=== PATIENT | male | born 1985 | race Caucasian/White ===

== ENCOUNTER 2017-04-13 15:12 | Inpatient (IN) | payer MEDICAID, OTHER ==
[~2017-04-13] VITALS: Ht 175.3 cm; Wt 79.0 kg
[~2017-04-13 15:12] MED LIST: HYDR-3535 PO
[2017-04-13] MEDS ORDERED: ONDANSETRON HCL 4 MG/2 ML VIAL ONE (15:13)
[2017-04-13] MEDS ORDERED: MORPHINE SULFATE 8 MG/ML INJ ONE (15:14)
[2017-04-13] MEDS ORDERED: MORPHINE SULFATE 4 MG/ML INJ IV PUSH ONE (15:30)
[2017-04-13] MEDS ORDERED: ONDANSETRON HCL 4 MG/2 ML VIAL IV PUSH ONE (15:30)
[2017-04-13] MEDS ORDERED: HYDROmorphone HCL PF 1 MG/ML VIAL IV PUSH ONE (16:30)
--- NOTE | 2017-04-13 16:38 | RADRPT ---
EXAM DATE/TIME: 04/13/2017 15:35 [facility] COMPARISON: No previous studies available for comparison. INDICATIONS : Right ankle pain due to fall off roof. MEDICAL HISTORY : None. SURGICAL HISTORY : None. ENCOUNTER: Initial ACUITY: 1 day PAIN SCORE: 10/10 LOCATION: Right Ankle. FINDINGS: AP, lateral and oblique views of the right ankle were obtained and demonstrate a moderately comminute d fracture deformity of the calcaneus with multiple well-defined fracture lines and mild to moderate deformity. There is surrounding soft tissue edema. The talus and midfoot are intact. The distal tibio fibular intact as well. The mortise is congruent. CONCLUSION: Moderately comminuted fracture deformity of the calcaneus. Jonas Junior MD on April 13, 2017 at 16:35 Board Certified Radiologist. This report was verified electronically.
--- NOTE | 2017-04-13 16:39 | RADRPT ---
EXAM DATE/TIME: 04/13/2017 15:49 [facility] COMPARISON: No previous studies available for comparison. INDICATIONS : Low back pain due fall off roof. MEDICAL HISTORY : None. SURGICAL HISTORY : None. ENCOUNTER: Initial ACUITY: 1 day PAIN SCORE: 10/10 LOCATION: Lumbar spine. FINDINGS: There are five non-rib bearing vertebral bodies. The vertebral bodies are in normal alignment withou t evidence of subluxation or scoliosis. The disc spaces are maintained. The posterior elements are intact without evidence of spondylolysis. The pedicles are intact. Bony mineralization is normal. No fracture is identified. There is mild scoliosis. CONCLUSION: Negative trauma study. Jonas Junior MD on April 13, 2017 at 16:37 Board Certified Radiologist. This report was verified electronically.
--- NOTE | 2017-04-13 16:39 | RADRPT ---
EXAM DATE/TIME: 04/13/2017 15:38 [facility] COMPARISON: ANKLE RIGHT COMPLETE ([id number]), April 13, 2017, 15:35. INDICATIONS : Right lower leg pain due to fall off roof. MEDICAL HISTORY : None. SURGICAL HISTORY : None. ENCOUNTER: Initial ACUITY: 1 day PAIN SCORE: 10/10 LOCATION: Right Tib fib. FINDINGS: Two view examination of the right tibia demonstrates no evidence of fracture or dislocation. Bony mi neralization is normal. The soft tissue structures are intact. The known calcaneal fracture is again visualized. CONCLUSION: Negative trauma study. The known calcaneal fracture is again visualized. Jonas Junior MD on April 13, 2017 at 16:36 Board Certified Radiologist. This report was verified electronically.
--- NOTE | 2017-04-13 16:41 | RADRPT ---
EXAM DATE/TIME: 04/13/2017 15:45 [facility] COMPARISON: No previous studies available for comparison. INDICATIONS : Left tib fib due to fall off roof. MEDICAL HISTORY : None. SURGICAL HISTORY : None. ENCOUNTER: Initial ACUITY: 1 day PAIN SCORE: 10/10 LOCATION: Left Tib fib. FINDINGS: Two view examination of the left tibia demonstrates no evidence of fracture or dislocation. Bony min eralization is normal. The soft tissue structures are intact. CONCLUSION: Negative trauma study. Jonas Junior MD on April 13, 2017 at 16:39 Board Certified Radiologist. This report was verified electronically.
[2017-04-13 16:42] VITALS: BP 145/98; PULSE 90; RESP 18; TEMP 98.4; O2SAT 98
--- NOTE | 2017-04-13 16:42 | RADRPT ---
EXAM DATE/TIME: 04/13/2017 15:42 [facility] COMPARISON: No previous studies available for comparison. INDICATIONS : Left ankle pain due to fall off roof. MEDICAL HISTORY : None. SURGICAL HISTORY : None. ENCOUNTER: Initial ACUITY: 1 day PAIN SCORE: 10/10 LOCATION: Left Ankle. FINDINGS: AP, lateral and oblique views of the left ankle were obtained and demonstrate a mildly comminuted fra cture deformity of the calcaneus with several well-defined fracture lines. These extend to the subtal ar joint. There is mild soft tissue swelling. The talus is intact. The ankle mortise is intact as wel l. CONCLUSION: Mildly comminuted fracture deformity of the calcaneus. Jonas Junior MD on April 13, 2017 at 16:39 Board Certified Radiologist. This report was verified electronically.
--- NOTE | 2017-04-13 16:43 | RADRPT ---
EXAM DATE/TIME: 04/13/2017 16:00 [facility] COMPARISON: ANKLE RIGHT COMPLETE ([id number]), April 13, 2017, 15:35. INDICATIONS : Right foot pain and swelling due to fall off roof. MEDICAL HISTORY : None. SURGICAL HISTORY : None. ENCOUNTER: Initial ACUITY: 1 day PAIN SCORE: 10/10 LOCATION: Right Foot. FINDINGS: AP, lateral and oblique views of the right foot were obtained and again demonstrate a moderately comm inuted fracture deformity of the calcaneus with multiple ill-defined fracture lines. These extend int o the subtalar joint. There is deformity of the calcaneus with surrounding soft tissue swelling. The metatarsals and phalanges are intact. The midfoot is intact as well. CONCLUSION: Moderately comminuted fracture deformity of the calcaneus again noted. Jonas Junior MD on April 13, 2017 at 16:40 Board Certified Radiologist. This report was verified electronically.
--- NOTE | 2017-04-13 16:44 | RADRPT ---
EXAM DATE/TIME: 04/13/2017 16:02 [facility] COMPARISON: No previous studies available for comparison. INDICATIONS : Left foot pain and swelling due to fall off roof. MEDICAL HISTORY : None. SURGICAL HISTORY : None. ENCOUNTER: Initial ACUITY: 1 day PAIN SCORE: 10/10 LOCATION: Left Foot. FINDINGS: AP, lateral and oblique views of the left foot were obtained and again demonstrate the mildly comminu robert fracture deformity of the calcaneus with several ill-defined fracture lines. The mid foot and jaciel us are intact. The metatarsals and phalanges are intact as well. There is mild soft tissue swelling o jesi the calcaneus. CONCLUSION: Mildly comminuted fracture deformity of the calcaneus again noted. Jonas Junior MD on April 13, 2017 at 16:41 Board Certified Radiologist. This report was verified electronically.
[2017-04-13 17:16] LABS: ALCOHOL LESS THAN 3 MG/DL (0-5)
--- NOTE | 2017-04-13 17:49 | PD ---
HPI Chief Complaint: Fall Time Seen by Provider: 15:16 Travel History International Travel<30 days: No Contact w/Intl Traveler<30days: No Traveled to known affect area: No History of Present Illness HPI Patient is a 32-year-old male who comes in after he fell off of the roof. He was in a heart is on a rope, but it did not catch and he 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 He denies any other injuries. He says he did not fall down. He is complaining of pain to both feet. He did not hit his head or lose consciousness. He denies any chest pain or abdominal pain. He denies any back pain. He denies numbness or tingling of his extremities. PFSH Past Medical History Cerebrovascular Accident: No Myocardial Infarction: No ?: Not Social History Alcohol Use: Yes (OCCASIONALLY) Tobacco Use: No Substance Use: No Allergies-Medications (Allergen,Severity, Reaction): Coded Allergies: No Known Allergies (Unverified , 07/07/14) Reported Meds & Prescriptions Reported Meds & Active Scripts Active Review of Systems Except as stated in HPI: all other systems reviewed are Neg General / Constitutional: No: Fever, Chills Eyes: No: Blurred Vision HENT: No: Headaches, Lightheadedness Cardiovascular: No: Chest Pain or Discomfort Respiratory: No: Shortness of Breath Gastrointestinal: No: Nausea, Vomiting Musculoskeletal: Positive: Pain Skin: No Change in Pigmentation, No Lesions Neurologic: No: Paresthesia, Sensory Disturbance Physical Exam Narrative GENERAL: Awake and alert, in no acute distress. SKIN: Focused skin assessment warm/dry. No open wounds. HEAD: Atraumatic. Normocephalic. EYES: Pupils equal and round. No scleral icterus. ENT: Mucous membranes pink and moist. NECK: Trachea midline. No JVD. No cervical spine tenderness. CARDIOVASCULAR: Regular rate and rhythm. No murmur appreciated. No chest wall tenderness. RESPIRATORY: No accessory muscle use. Clear to auscultation. Breath sounds equal bilaterally. GASTROINTESTINAL: Abdomen soft, non-tender, nondistended. MUSCULOSKELETAL: No obvious deformities. No clubbing. No cyanosis. No edema. No tenderness to the thoracic or lumbar spine. Deformities of both feet. Pedal pulses intact. No tenderness to the lower legs, knees or upper legs. NEUROLOGICAL: Awake and alert. No obvious cranial nerve deficits. Motor grossly within normal limits. Normal speech. PSYCHIATRIC: Appropriate mood and affect; insight and judgment normal. Data Data Last Documented VS Vital Signs Date Time Temp Pulse Resp B/P (MAP) Pulse Ox O2 Delivery O2 Flow Rate FiO2 04/13/17 16:44 80 18 98 Room Air 04/13/17 16:42 98.4 145/98 (114) Orders Orders Ondansetron Inj (Zofran Inj) (04/13/17 15:13) Morphine Inj (Morphine Inj) (04/13/17 15:14) Foot, Complete ([id number]) (04/13/17 ) Ankle, Complete ([id number]) (04/13/17 ) Tibia/Fibula (Ap/Lat) (04/13/17 ) Foot, Complete (Jqi7npt) (04/13/17 ) Ankle, Complete (Mhr6ned) (04/13/17 ) Tibia/Fibula (Ap/Lat) (04/13/17 ) Spine, Lumbar Comp W/Obliq (04/13/17 ) Morphine Inj (Morphine Inj) (04/13/17 15:30) Ondansetron Inj (Zofran Inj) (04/13/17 15:30) Drug Screen, Random Urine (04/13/17 16:16) Alcohol (Ethanol) (04/13/17 16:16) Hydromorphone Pf Inj (Dilaudid Pf Inj) (04/13/17 16:30) Ct Foot W/O Contrast (04/13/17 ) Ct Foot W/O Contrast (04/13/17 ) Splint Or Brace Apply/Monitor (04/13/17 17:28) Complete Blood Count With Diff (04/13/17 17:38) Comprehensive Metabolic Panel (04/13/17 17:38) Act Partial Throm Time (Ptt) (04/13/17 17:38) Prothrombin Time / Inr (Pt) (04/13/17 17:38) Labs Laboratory Tests Test 04/13/17 16:24 Ethyl Alcohol Level LESS THAN 3 MG/DL MDM Medical Decision Making Medical Screen Exam Complete: Yes Emergency Medical Condition: Yes Differential Diagnosis Calcaneal fracture versus ankle fracture versus tib-fib fracture Narrative Course Patient is a 32-year-old male comes in after he fell off the roof. Exam shows deformities of both feet. Patient given pain medicine. Taken for x-rays of both feet, ankles, tib-fib and the lumbar spine. X-rays show fracture of by lateral calcaneus bones. I spoke with podiatry who comes patient and take him for surgery either tonight or tomorrow morning. She would like CAT scans performed, these were ordered. Patient will be admitted for further management. Diagnosis Primary Impression: Calcaneal fracture Qualified Codes: S92.009A - Unspecified fracture of unspecified calcaneus, initial encounter for closed fracture Admitting Information Admitting Physician Requests: Admit Anette Lacey MD Apr 13, 2017 17:49
[2017-04-13 18:06] LABS: AUTOMATED NEUTROPHIL # 12.8 TH/MM3 (1.8-7.7); BASOPHIL % 0.2 % (0.0-2.0); EOSINOPHIL # 0.1 TH/MM3 (0-0.4); EOSINOPHIL % 0.3 % (0.0-4.0); HEMATOCRIT 44.5 % (39.0-51.0); HEMO FLAGS DIFF FINAL; LYMPH % 18.1 % (9.0-44.0); MEAN CORPUSCULAR HEMOGLOBIN 32.5 PG (27.0-34.0); MEAN CORPUSCULAR HGB CONC 34.9 % (32.0-36.0); MONO % 4.8 % (0.0-8.0); NEUT % 76.6 % (16.0-70.0); PLATELET COUNT 202 TH/MM3 (150-450); RED BLOOD COUNT 4.79 MIL/MM3 (4.50-5.90); RED CELL DISTRIBUTION WIDTH 13.5 % (11.6-17.2); WHITE BLOOD COUNT 16.8 TH/MM3 (4.0-11.0)
[2017-04-13 18:13] VITALS: BP 122/83; PULSE 98; RESP 18; O2SAT 99
[2017-04-13 18:13] LABS: APTT (PATIENT) 25.7 SEC (24.3-30.1); PROTHROMBIN TIME - PATIENT 10.6 SEC (9.8-11.6)
[2017-04-13] MEDS ORDERED: ONDANSETRON HCL 4 MG/2 ML VIAL IVP PRN (18:15)
[2017-04-13] MEDS ORDERED: HYDROmorphone HCL PF 0.5 MG/0.5 ML SYRINGE IV PUSH ONE (18:15)
[2017-04-13] MEDS ORDERED: oxyCODONE/ACETAMINOPHEN 5 MG/325 MG TAB PO PRN (18:15)
[2017-04-13] MEDS ORDERED: NALOXONE HCL 0.4 MG/ML AMP IV PUSH PRN (18:15)
[2017-04-13 18:30] LABS: AST (GOT) 27 U/L (15-37); BLOOD UREA NITROGEN 14 MG/DL (7-18); CHLORIDE 103 MEQ/L (98-107); GLOMERULAR FILTRATION RATE 79 ML/MIN (>89); SODIUM (NA) 138 MEQ/L (136-145)
--- NOTE | 2017-04-13 18:30 | HHI.HP ---
[facility] Unknown Admission Diagnosis calcaneal fractures Diagnoses: (1) Calcaneal fracture Chief Complaint: Fell off roof Travel History International Travel<30 Days: No Contact w/Intl Traveler <30 Da: No Traveled to Known Affected Are: No History of Present Illness Written by Bello Munroe, acting as scribe for Dr. Scott on 04/13/17 at 18:10. 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 He does not report a significant past medical history, denies any other injuries or trauma. When seen his is at bedside and he appears comfortable in no acute distress. He is complaining of bilateral foot pain radiating it 10, states pain medication that he received did help but for only short period of time. Does not report any fever, chills, numbness, or tingling. Review of Systems Musculoskeletal: COMPLAINS OF: Joint pain Except as stated in HPI: all other systems reviewed are Neg Past Family Social History Past Medical History Denies past medical history Past Surgical History Reattachment of left hand portion of fifth digit Reported Medications Reported Meds & Active Scripts Active Allergies: Coded Allergies: No Known Allergies (Unverified Allergy, Unknown, 04/13/17) Family History Father: diabetes Social History Tobacco: 1-2 packs per day Alcohol: Denies use Illicit drug use: Denies use Physical Exam Vital Signs Vital Signs Date Time Temp Pulse Resp B/P (MAP) Pulse Ox O2 Delivery O2 Flow Rate FiO2 04/13/17 16:44 80 18 98 Room Air 04/13/17 16:42 98.4 90 18 145/98 (114) 98 Room Air Physical Exam GENERAL: This is a well-nourished, well-developed patient, in no apparent distress. SKIN: No rashes, ecchymoses or lesions. Cool and dry. HEAD: Atraumatic. Normocephalic. No temporal or scalp tenderness. EYES: Pupils equal round and reactive. No injection or drainage. ENT: Nose without bleeding, purulent drainage or septal hematoma. Airway patent. NECK: Trachea midline. CARDIOVASCULAR: Regular rate and rhythm without murmurs, gallops, or rubs. RESPIRATORY: Clear to auscultation. Breath sounds equal bilaterally. No wheezes , rales, or rhonchi. GASTROINTESTINAL: Abdomen soft, non-tender, nondistended. No hepato-splenomegaly , or palpable masses. No guarding. MUSCULOSKELETAL: Bilateral feet and legs in soft splints, toes visible capillary refill <3 seconds. ROM limited due to splints, moves upper extremities without difficulty. NEUROLOGICAL: Awake and alert. Motor and sensory grossly within normal limits. Normal speech. Laboratory Laboratory Tests Test 04/13/17 16:24 04/13/17 17:46 Ethyl Alcohol Level LESS THAN 3 White Blood Count 16.8 Red Blood Count 4.79 Hemoglobin 15.5 Hematocrit 44.5 Mean Corpuscular Volume 93.0 Mean Corpuscular Hemoglobin 32.5 Mean Corpuscular Hemoglobin Concent 34.9 Red Cell Distribution Width 13.5 Platelet Count 202 Mean Platelet Volume 9.7 Neutrophils (%) (Auto) 76.6 Lymphocytes (%) (Auto) 18.1 Monocytes (%) (Auto) 4.8 Eosinophils (%) (Auto) 0.3 Basophils (%) (Auto) 0.2 Neutrophils # (Auto) 12.8 Lymphocytes # (Auto) 3.0 Monocytes # (Auto) 0.8 Eosinophils # (Auto) 0.1 Basophils # (Auto) 0.0 CBC Comment DIFF FINAL Differential Comment Result Diagram: 04/13/17 1746 Imaging Last Impressions Tibia/Fibula X-Ray 04/13/17 0000 Signed Impressions: Service Date/Time: Thursday, April 13, 2017 15:38 - CONCLUSION: Negative trauma study. The known calcaneal fracture is again visualized. Jonas Junior MD Lumbar Spine X-Ray 04/13/17 0000 Signed Impressions: Service Date/Time: Thursday, April 13, 2017 15:49 - CONCLUSION: Negative trauma study. Jonas Junior MD Foot X-Ray 04/13/17 0000 Signed Impressions: Service Date/Time: Thursday, April 13, 2017 16:00 - CONCLUSION: Moderately comminuted fracture deformity of the calcaneus again noted. Jonas Junior MD Ankle X-Ray 04/13/17 0000 Signed Impressions: Service Date/Time: Thursday, April 13, 2017 15:35 - CONCLUSION: Moderately comminuted fracture deformity of the calcaneus. MD Dede Gan VTE Risk Assessment Dede VTE Risk Assessment: No/Low Risk (score <= 1) VTE Pharm Contraindication: Calcaneus fracture with possible surgical intervention tonight or tomorrow eDde Risk Assessment Model Point Value = 1 Point Value = 2 Point Value = 3 Point Value = 5 Age 41-60 Minor surgery BMI > 25 kg/m2 Swollen legs Varicose veins or History of unexplained or recurrent spontaneous Oral contraceptives or hormone replacement Sepsis (< 1 month) Serious lung disease, including pneumonia (< 1 month) Abnormal pulmonary function Acute myocardial infarction Congestive heart failure (< 1 month) History of inflammatory bowel disease Medical patient at bed rest Age 61-74 Arthroscopic surgery Major open surgery (> 45 min) Laparoscopic surgery (> 45 min) Malignancy Confined to bed (> 72 hours) Immobilizing plaster cast Central venous access Age >= 75 History of VTE Family history of VTE Factor V Leiden Prothrombin [id number] Lupus anticoagulant Anticardiolipin antibodies Elevated serum homocysteine Heparin-induced thrombocytopenia Other congenital or acquired thrombophilia Stroke (< 1 month) Elective arthroplasty Hip, pelvis, or leg fracture Acute spinal cord injury (< 1 month) Prophylaxis Regimen Total Risk Factor Score Risk Level Prophylaxis Regimen 0-1 Low Early ambulation 2 Moderate Order ONE of the following: *Sequential Compression Device (SCD) *Heparin 5000 units SQ BID 3-4 Higher Order ONE of the following medications: *Heparin 5000 units SQ TID *Enoxaparin/Lovenox 40 mg SQ daily (WT < 150 kg, CrCl > 30 mL/min) *Enoxaparin/Lovenox 30 mg SQ daily (WT < 150 kg, CrCl > 10-29 mL/min) *Enoxaparin/Lovenox 30 mg SQ BID (WT < 150 kg, CrCl > 30 mL/min) AND/OR *Sequential Compression Device (SCD) 5 or more Highest Order ONE of the following medications: *Heparin 5000 units SQ TID (Preferred with Epidurals) *Enoxaparin/Lovenox 40 mg SQ daily (WT < 150 kg, CrCl > 30 mL/min) *Enoxaparin/Lovenox 30 mg SQ daily (WT < 150 kg, CrCl > 10-29 mL/min) *Enoxaparin/Lovenox 30 mg SQ BID (WT < 150 kg, CrCl > 30 mL/min) AND *Sequential Compression Device (SCD) Assessment and Plan Problem List: (1) Calcaneal fracture ICD Code: S92.009A - Unspecified fracture of unspecified calcaneus, initial encounter for closed fracture Status: Acute Assessment and Plan 32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 Bilateral calcaneus fractures - Secondary to sustained injury after he slipped off of her roof - X-ray of left ankle personally reviewed showing mildly comminuted fracture deformity of the calcaneus - X-ray of right ankle personally reviewed showing moderately comminuted fracture deformity of the calcaneus. - Bilateral foot x-rays once again demonstrating fractures as described above , lumbar spine x-ray negative for fracture, lateral tibial/fibular x-rays negative for fracture. - The orthopedic service is consulted - Pain management with P.O oxycodone and IV Dilaudid for breakthrough pain. Nicotine dependence - Nicotine patch offered, at this moment has refused. Patient to let me know if he changes his mind. VTE - Hold anticoagulation preparation for possible surgical intervention, SCDs contraindicated due to soft splints in place. Discussed with at bedside Code Status Full code Discussed Condition With This note was transcribed by [email or web address] [Bello Munroe]. I, Dr. Saman Scott personally performed the history, physical exam, and medical decision making; and confirmed the accuracy of the information in the transcribed note. Authenticated by Dr. Saman Scott on 04/13/17 at 18:55. Physician Certification 2 Midnight Certification Type: Admission for Inpatient Services Order for Inpatient Services The services are ordered in accordance with Medicare regulations or non- Medicare payer requirements, as applicable. In the case of services not specified as inpatient-only, they are appropriately provided as inpatient services in accordance with the 2-midnight benchmark. Estimated LOS (days): 3 days is the estimated time the patient will need to remain in the hospital, assuming treatment plan goals are met and no additional complications. Post-Hospital Plan: Home Problem Qualifiers (1) Calcaneal fracture: Qualified Codes: S92.009A - Unspecified fracture of unspecified calcaneus, initial encounter for closed fracture Bello Munroe Apr 13, 2017 18:30 Saman Scott MD Apr 13, 2017 18:55
[2017-04-13 18:38] LABS: ALT (GPT) 55 U/L (12-78); ANION GAP 10 MEQ/L (5-15); BICARBONATE 25.2 MEQ/L (21.0-32.0); TOTAL BILIRUBIN ADULT 0.9 MG/DL (0.2-1.0)
[2017-04-13 18:40] LABS: ALKALINE PHOSPHATASE 95 U/L (45-117)
--- NOTE | 2017-04-13 18:42 | RADRPT ---
EXAM DATE/TIME: 04/13/2017 17:44 [facility] COMPARISON: FOOT RIGHT COMPLETE ([id number]), April 13, 2017, 16:00. FOOT LEFT COMPLETE ([id number]), April 13, 2017, 16:02. INDICATIONS : Right foot pain from fall off ladder. RADIATION DOSE: 30.79 CTDIvol (mGy) MEDICAL HISTORY : None SURGICAL HISTORY : None. ENCOUNTER: Initial ACUITY: 1 day PAIN SCALE: 10/10 LOCATION: Right heel TECHNIQUE: Volumetric scanning of the foot was performed. Using automated exposure control and adjustment of th e mA and/or kV according to patient size, radiation dose was kept as low as reasonably achievable to obtain optimal diagnostic quality images. DICOM format image data is available electronically for re view and comparison. FINDINGS: BONES: There is a comminuted fracture of the calcaneus. The calcaneal fracture extends into the posterior an d mid portions of the subtalar joint. There is also extension into the medial aspect of the calcaneoc uboid joint. There is collapse of Boehler's angle. SOFT TISSUES: Muscles, tendons, and neurovascular structures are grossly unremarkable. No evidence of mass, organiz ed fluid collection, or foreign body. CONCLUSION: Comminuted calcaneal fracture. Luke Romero MD on April 13, 2017 at 18:38 Board Certified Radiologist. This report was verified electronically.
--- NOTE | 2017-04-13 18:44 | RADRPT ---
EXAM DATE/TIME: 04/13/2017 17:44 [facility] COMPARISON: No previous studies available for comparison. INDICATIONS : Left foot pain from fall off ladder. RADIATION DOSE: 30.79 CTDIvol (mGy) MEDICAL HISTORY : None SURGICAL HISTORY : None. ENCOUNTER: Initial ACUITY: 1 day PAIN SCALE: 10/10 LOCATION: proximal foot TECHNIQUE: Volumetric scanning of the foot was performed. Using automated exposure control and adjustment of th e mA and/or kV according to patient size, radiation dose was kept as low as reasonably achievable to obtain optimal diagnostic quality images. DICOM format image data is available electronically for re view and comparison. FINDINGS: BONES: There is a comminuted fracture of the calcaneus with extension into the mid and posterior aspects of the subtalar joint. There is extension into the medial aspect of the calcaneocuboid joint. There is l oss of Boehler's angle. SOFT TISSUES: Muscles, tendons, and neurovascular structures are grossly unremarkable. No evidence of mass, organiz ed fluid collection, or foreign body. CONCLUSION: Comminuted calcaneal fracture. Luke Romero MD on April 13, 2017 at 18:41 Board Certified Radiologist. This report was verified electronically.
[2017-04-13] MEDS: SODIUM CHLOR 0.9% 1000 ML INJ 1,000 ML IV SCH (19:13)
[2017-04-13 19:45] VITALS: BP 135/84; PULSE 101; RESP 17; TEMP 98.5; O2SAT 98
[2017-04-13] MEDS ORDERED: CHLORHEXIDINE GLUCONATE 2 % 1 PACK (2 CLOTHS) TOPICAL PRN (19:45)
[2017-04-13] MEDS ORDERED: INSULIN HUMAN REGULAR 1,000 UNITS/10 ML VIAL SQ PRN (19:45)
[2017-04-13] MEDS ORDERED: LACTATED RINGER'S 1000 ML IV PRN (19:45)
[2017-04-13] MEDS ORDERED: METOPROLOL TARTRATE 25 MG TAB PO PRN (19:45)
[2017-04-13] MEDS ORDERED: POVIDONE IODINE 5% (ANTISEPSIS KIT) 4 APPLICATIONS EACH NARE PRN (19:45)
[2017-04-13] MEDS ORDERED: SODIUM CHLORID 0.9% 500 ML IV PRN (19:45)
[2017-04-13] MEDS: HYDROmorphone HCL PF 1 MG/ML VIAL IV PUSH PRN (20:04)
[2017-04-13] MEDS: oxyCODONE/ACETAMINOPHEN 10 MG/325 MG TAB PO PRN (22:10)
--- NOTE | 2017-04-13 23:02 | PD.CONS ---
History of Present Illness Service Podiatry Consult Requested By ED Reason for Consult Bilateral calcaneal fractures Primary Care Physician Unknown Diagnoses: History of Present Illness Patient sustained fall from roof approx 17 feet and was found to have bilateral calcaneus fractures. He had pain to both feet and was unable to bear weight. No head injury Past Family Social History Allergies: Coded Allergies: No Known Allergies (Unverified Allergy, Unknown, 04/13/17) Past Medical History Denies past medical history Past Surgical History Reattachment of left hand portion of fifth digit Active Ordered Medications Current Medications Medications (Trade) Dose Ordered Sig/[place] Route Start Time Stop Time Status Last Admin Sodium Chloride 1,000 ml @ 83 mls/hr Q12H3M IV 04/13/17 18:07 04/13/17 19:13 (NS Flush) 2 ml UNSCH PRN IV FLUSH 04/13/17 18:15 (NS Flush) 2 ml BID IV FLUSH 04/13/17 21:00 04/14/17 01:26 (Zofran Inj) 4 mg Q6H PRN IVP 04/13/17 18:15 (Percocet 5-325 Mg) 1 tab Q6H PRN PO 04/13/17 18:15 (Percocet 10-325 Mg) 1 tab Q6H PRN PO 04/13/17 18:15 04/14/17 04:11 (Dilaudid Pf Inj) 1 mg Q3H PRN IV PUSH 04/13/17 18:15 04/14/17 01:26 (Narcan Inj) 0.4 mg UNSCH PRN IV PUSH 04/13/17 18:15 (Milk Of Magnesia Liq) 30 ml Q12H PRN PO 04/13/17 18:15 Lactated Ringer's 1,000 ml @ 30 mls/hr Q24H PRN IV 04/13/17 19:45 04/16/17 19:44 Sodium Chloride 500 ml @ 30 mls/hr [id number] PRN IV 04/13/17 19:45 04/16/17 19:44 (Lopressor) 25 mg MEDICARE BILLER PRN PO 04/13/17 19:45 04/16/17 19:44 (Betadine 5% Antisepsis Kit) 1 applic MEDICARE BILLER PRN EACH NARE 04/13/17 19:45 04/16/17 19:44 (Chlorhexidine 2% Cloth) 3 pack MEDICARE BILLER PRN TOPICAL 04/13/17 19:45 04/16/17 19:44 Family History Father: diabetes Social History Tobacco: 1-2 packs per day Alcohol: Denies use Illicit drug use: Denies use Physical Exam Vital Signs Vital Signs Date Time Temp Pulse Resp B/P (MAP) Pulse Ox O2 Delivery O2 Flow Rate FiO2 04/13/17 20:10 04/13/17 19:45 98.5 101 17 135/84 (101) 98 04/13/17 18:13 98 18 122/83 (96) 99 Room Air 04/13/17 16:44 80 18 98 Room Air 04/13/17 16:42 98.4 90 18 145/98 (114) 98 Room Air Physical Exam Compartments soft to bilateral feet. Painful to palpation diffusely to b/l feet. Posterior splints intact bilateral feet. NVI distal to injury bilaterally. Laboratory Laboratory Tests Test 04/13/17 16:24 04/13/17 17:46 04/13/17 21:15 Blood Urea Nitrogen 14 Creatinine 1.07 Random Glucose 118 Total Protein 7.8 Albumin 4.1 Calcium Level 9.0 Alkaline Phosphatase 95 Aspartate Amino Transf (AST/SGOT) 27 Alanine Aminotransferase (ALT/SGPT) 55 Total Bilirubin 0.9 Sodium Level 138 Potassium Level 4.0 Chloride Level 103 Carbon Dioxide Level 25.2 Anion Gap 10 Estimat Glomerular Filtration Rate 79 Ethyl Alcohol Level LESS THAN 3 White Blood Count 16.8 Red Blood Count 4.79 Hemoglobin 15.5 Hematocrit 44.5 Mean Corpuscular Volume 93.0 Mean Corpuscular Hemoglobin 32.5 Mean Corpuscular Hemoglobin Concent 34.9 Red Cell Distribution Width 13.5 Platelet Count 202 Mean Platelet Volume 9.7 Neutrophils (%) (Auto) 76.6 Lymphocytes (%) (Auto) 18.1 Monocytes (%) (Auto) 4.8 Eosinophils (%) (Auto) 0.3 Basophils (%) (Auto) 0.2 Neutrophils # (Auto) 12.8 Lymphocytes # (Auto) 3.0 Monocytes # (Auto) 0.8 Eosinophils # (Auto) 0.1 Basophils # (Auto) 0.0 CBC Comment DIFF FINAL Differential Comment Prothrombin Time 10.6 Prothromb Time International Ratio 1.0 Activated Partial Thromboplast Time 25.7 Urine Opiates Screen NEG Urine Barbiturates Screen NEG Urine Amphetamines Screen NEG Urine Benzodiazepines Screen NEG Urine Cocaine Screen NEG Urine Cannabinoids Screen NEG Result Diagram: 04/13/17 1746 04/13/17 1624 Imaging Last 72 hours Impressions Tibia/Fibula X-Ray 04/13/17 0000 Signed Impressions: Service Date/Time: Thursday, April 13, 2017 15:38 - CONCLUSION: Negative trauma study. The known calcaneal fracture is again visualized. Jonas Junior MD Tibia/Fibula X-Ray 04/13/17 0000 Signed Impressions: Service Date/Time: Thursday, April 13, 2017 15:45 - CONCLUSION: Negative trauma study. Jonas Junior MD Lumbar Spine X-Ray 04/13/17 0000 Signed Impressions: Service Date/Time: Thursday, April 13, 2017 15:49 - CONCLUSION: Negative trauma study. Jonas Junior MD Lower Extremity CT 04/13/17 0000 Signed Impressions: Service Date/Time: Thursday, April 13, 2017 17:44 - CONCLUSION: Comminuted calcaneal fracture. Luke Romero MD Lower Extremity CT 04/13/17 0000 Signed Impressions: Service Date/Time: Thursday, April 13, 2017 17:44 - CONCLUSION: Comminuted calcaneal fracture. Luke Romero MD Foot X-Ray 04/13/17 0000 Signed Impressions: Service Date/Time: Thursday, April 13, 2017 16:00 - CONCLUSION: Moderately comminuted fracture deformity of the calcaneus again noted. Jonas Junior MD Foot X-Ray 04/13/17 0000 Signed Impressions: Service Date/Time: Thursday, April 13, 2017 16:02 - CONCLUSION: Mildly comminuted fracture deformity of the calcaneus again noted. Jonas Junior MD Ankle X-Ray 04/13/17 0000 Signed Impressions: Service Date/Time: Thursday, April 13, 2017 15:35 - CONCLUSION: Moderately comminuted fracture deformity of the calcaneus. Jonas Junior MD Ankle X-Ray 04/13/17 0000 Signed Impressions: Service Date/Time: Thursday, April 13, 2017 15:42 - CONCLUSION: Mildly comminuted fracture deformity of the calcaneus. Jonas Junior MD Assessment and Plan Assessment and Plan Bilateral displaced calcaneus fractures To OR tomorrow morning for ORIF R calcaneus Likely to OR for ORIF L calcaneus Lauren Soto DPM Apr 13, 2017 23:02
[2017-04-14] VITALS (8 sets, daily range): BP systolic 106–143; BP diastolic 58–84; PULSE 74–99; RESP 16–20; TEMP 97.9–101.5; O2SAT 91–98
[2017-04-14] MEDS: SODIUM CHLORIDE 0.9% FLUSH 10 ML FLUSH IV FLUSH SCH ×3 (01:26→19:51)
[2017-04-14] MEDS: HYDROmorphone HCL PF 1 MG/ML VIAL IV PUSH PRN ×3 (01:26→18:58)
[2017-04-14] MEDS: oxyCODONE/ACETAMINOPHEN 10 MG/325 MG TAB PO PRN ×4 (04:11→22:33)
--- NOTE | 2017-04-14 04:41 | PD.POD ---
Subjective Podiatric Problems Calcaneus fracture with xignificant increase in pain x 1 hour to entire R foot Past Med/Surg/Social History Social History Smoking Status: Never Smoker Objective Vital Signs Vital Signs Date Time Temp Pulse Resp B/P (MAP) Pulse Ox O2 Delivery O2 Flow Rate FiO2 04/14/17 03:20 98.4 86 20 143/84 (103) 98 04/14/17 00:00 98.7 85 16 119/77 (91) 97 04/13/17 20:10 04/13/17 19:45 98.5 101 17 135/84 (101) 98 04/13/17 18:13 98 18 122/83 (96) 99 Room Air 04/13/17 16:44 80 18 98 Room Air 04/13/17 16:42 98.4 90 18 145/98 (114) 98 Room Air Coded Allergies: No Known Allergies (Unverified Allergy, Unknown, 04/13/17) Medications and IVs Current Medications Medications (Trade) Dose Ordered Sig/[place] Route Start Time Stop Time Status Last Admin Sodium Chloride 1,000 ml @ 83 mls/hr Q12H3M IV 04/13/17 18:07 04/13/17 19:13 (NS Flush) 2 ml UNSCH PRN IV FLUSH 04/13/17 18:15 (NS Flush) 2 ml BID IV FLUSH 04/13/17 21:00 04/14/17 01:26 (Zofran Inj) 4 mg Q6H PRN IVP 04/13/17 18:15 (Percocet 5-325 Mg) 1 tab Q6H PRN PO 04/13/17 18:15 (Percocet 10-325 Mg) 1 tab Q6H PRN PO 04/13/17 18:15 04/14/17 04:11 (Dilaudid Pf Inj) 1 mg Q3H PRN IV PUSH 04/13/17 18:15 04/14/17 01:26 (Narcan Inj) 0.4 mg UNSCH PRN IV PUSH 04/13/17 18:15 (Milk Of Magnesia Liq) 30 ml Q12H PRN PO 04/13/17 18:15 Lactated Ringer's 1,000 ml @ 30 mls/hr Q24H PRN IV 04/13/17 19:45 04/16/17 19:44 Sodium Chloride 500 ml @ 30 mls/hr [id number] PRN IV 04/13/17 19:45 04/16/17 19:44 (Lopressor) 25 mg READING TEACHER PRN PO 04/13/17 19:45 04/16/17 19:44 (Betadine 5% Antisepsis Kit) 1 applic READING TEACHER PRN EACH NARE 04/13/17 19:45 04/16/17 19:44 (Chlorhexidine 2% Cloth) 3 pack READING TEACHER PRN TOPICAL 04/13/17 19:45 04/16/17 19:44 Other Results Last 72 hours Impressions Tibia/Fibula X-Ray 04/13/17 0000 Signed Impressions: Service Date/Time: Thursday, April 13, 2017 15:38 - CONCLUSION: Negative trauma study. The known calcaneal fracture is again visualized. Jonas Junior MD Tibia/Fibula X-Ray 04/13/17 0000 Signed Impressions: Service Date/Time: Thursday, April 13, 2017 15:45 - CONCLUSION: Negative trauma study. Jonas Junior MD Lumbar Spine X-Ray 04/13/17 0000 Signed Impressions: Service Date/Time: Thursday, April 13, 2017 15:49 - CONCLUSION: Negative trauma study. Jonas Junior MD Lower Extremity CT 04/13/17 0000 Signed Impressions: Service Date/Time: Thursday, April 13, 2017 17:44 - CONCLUSION: Comminuted calcaneal fracture. Luke Romero MD Lower Extremity CT 04/13/17 0000 Signed Impressions: Service Date/Time: Thursday, April 13, 2017 17:44 - CONCLUSION: Comminuted calcaneal fracture. Luke Romero MD Foot X-Ray 04/13/17 0000 Signed Impressions: Service Date/Time: Thursday, April 13, 2017 16:00 - CONCLUSION: Moderately comminuted fracture deformity of the calcaneus again noted. Jonas Junior MD Foot X-Ray 04/13/17 0000 Signed Impressions: Service Date/Time: Thursday, April 13, 2017 16:02 - CONCLUSION: Mildly comminuted fracture deformity of the calcaneus again noted. Jonas Junior MD Ankle X-Ray 04/13/17 0000 Signed Impressions: Service Date/Time: Thursday, April 13, 2017 15:35 - CONCLUSION: Moderately comminuted fracture deformity of the calcaneus. Jonas Junior MD Ankle X-Ray 04/13/17 0000 Signed Impressions: Service Date/Time: Thursday, April 13, 2017 15:42 - CONCLUSION: Mildly comminuted fracture deformity of the calcaneus. Jonas Junior MD Exam-Podiatry Remarks Severe pain with passive stretch, severe uncontrolled pain in general that is worsening, and compartments not compressible to forefoot and calcaneal compartments. Capillary refill time remains brisk to digits and DP/PT pulses palpable Assessment & Plan A/P Acute compartment syndrome R foot x 1 hour, s/p calcaneal fracture R foot To OR now for fasciotomy R foot and possible attempt at percutaneous/mini open reduction w external/internal fixation calcaneus. Discussed possible wound vac Lauren Young DPM Apr 14, 2017 04:41
[2017-04-14] MEDS: SODIUM CHLOR 0.9% 1000 ML INJ 1,000 ML IV SCH ×2 (06:10→18:59)
--- NOTE | 2017-04-14 07:06 | RADRPT ---
EXAM DATE/TIME: 04/14/2017 06:22 [facility] COMPARISON: No previous studies available for comparison. INDICATIONS : Fracture MEDICAL HISTORY : None. SURGICAL HISTORY : None. ENCOUNTER: Initial ACUITY: 1 day PAIN SCORE: Non-responsive. LOCATION: Right foot FINDINGS: 4 intraoperative spot images of the right foot. Comminuted calcaneus fracture noted. External fixator components in place. CONCLUSION: Multiple intraoperative images demonstrating calcaneus fracture and a portion of external fixation jeff rdware. Rafa Álvarez MD on April 14, 2017 at 7:02 Board Certified Radiologist. This report was verified electronically.
[2017-04-14] MEDS ORDERED: *morphine SULFATE 8 MG/ML PERIprocedure ONLY ONE (07:11)
--- NOTE | 2017-04-14 07:15 | HHI.PR ---
Immediate Post Op Note Procedure Date: Apr 14, 2017 Pre Op Diagnosis: 1. Calcaneus fracture Right foot, displaced 2. Acute compartment syndrome R foot Post Op Diagnosis: Same Surgeon: Lauren Young DPM Volleyball Assembler(s): Staff Procedure: 1. Application of external fixator Right calcaneus 2. Fasciotomy/compartment release Right foot Findings: Consistent with diagnosis. Compartments hard with severe pain on physical exam prior to OR. Dorsal incision along 2nd and 4th metatarsals to access dorsal, medial, plantar, lateral, and central compartments. Pressure released from all respective compartments and visualized. No tourniquet utilized. Medial incision made along plantar calcaneal compartment area and released lateral, medial, superficial, and calcaneal compartments. External fixator applied from medial aspect with 4.0mm half pin to most posterior superior fragment, which was tenting skin posteriorly, as well as to medial aspect of talar neck, and base of 1st metatarsal, to achieve by reduction of pressure from fragment to posterior heel area. Loose approximation of medial calcaneal incision with 2-0 nylon and adaptic to pin sites and incision area, then wound vac applied to dorsal foot set at 125mmHg medium continuous setting. Dressing with posterior splint in plantarflexion and heel offloaded, followed by zach. Return to OR planned tomorrow for ORIF L calcaneus Return to OR early next week for ORIF R calcaneus/removal of external fixator R foot/wound vac change R foot NWB B/L LE Additional Information: 2g Ancef IV preop Complications: None Specimen(s) removed: N/a Estimated blood loss: 30mL Anesthesia: General Drains: None IVF Tourniquet time (min at mmHg) n/a Patient to: PACU Patient Condition: Good Implant/Devices: SEE IMPLANT LOG (if applicable) Date/Time of Procedure: SEE SURGICAL CARE RECORD Lauren Young DPM Apr 14, 2017 07:15
[2017-04-14] MEDS ORDERED: DO NOT ADM ANY ANTICOAGULANT DRUGS PRN (07:30)
--- NOTE | 2017-04-14 07:30 | RADRPT ---
EXAM DATE/TIME: 04/14/2017 07:11 [facility] COMPARISON: CT FOOT RIGHT W/O CONTRAST, April 13, 2017, 17:44. FOOT RIGHT COMPLETE ([id number]), April 13 17, 16:00. INDICATIONS : Post-op right foot. Post ex-fix. MEDICAL HISTORY : None. SURGICAL HISTORY : None. ENCOUNTER: Subsequent ACUITY: 1 day PAIN SCORE: Non-responsive. LOCATION: Right foot. FINDINGS: 3 views right foot. Comminuted calcaneous fracture again identified. External fixator pins are identi fied in the first metatarsal shaft, neck of the talus, and posterior process of the calcaneus. CONCLUSION: Comminuted calcaneus fracture. External fixator pins in place. Rafa Álvarez MD on April 14, 2017 at 7:25 Board Certified Radiologist. This report was verified electronically.
--- NOTE | 2017-04-14 07:34 | RADRPT ---
EXAM DATE/TIME: 04/14/2017 07:17 [facility] COMPARISON: ANKLE RIGHT COMPLETE ([id number]), April 13, 2017, 15:35. INDICATIONS : Post op right foot ex fix MEDICAL HISTORY : None. SURGICAL HISTORY : None. ENCOUNTER: Initial ACUITY: 1 day PAIN SCORE: Non-responsive. LOCATION: Right ankle FINDINGS: 3 views right ankle. Comminuted calcaneous fracture again identified. External fixation pins in place in the talus, calcaneus, and great toe metatarsal. CONCLUSION: Comminuted calcaneus fracture. External fixator pins in place. Rafa Álvarez MD on April 14, 2017 at 7:32 Board Certified Radiologist. This report was verified electronically.
[2017-04-14] MEDS ORDERED: oxyCODONE/ACETAMINOPHEN 5 MG/325 MG TAB PO PRN (08:45)
--- NOTE | 2017-04-14 11:24 | HHI.PR ---
Subjective Remarks Patient is postop with right calcaneus external fixation. Pain medications adjusted. Pain controlled when seen. No acute complaints when seen. Objective Vital Signs Date Time Temp Pulse Resp B/P (MAP) Pulse Ox O2 Delivery O2 Flow Rate FiO2 04/14/17 08:19 97.9 86 18 127/84 (98) 92 04/14/17 08:00 92 16 127/74 (91) 95 Room Air 04/14/17 07:45 85 16 121/67 (85) 94 Room Air 04/14/17 07:30 85 16 125/76 (92) 94 Room Air 04/14/17 07:15 90 16 135/82 (99) 94 Room Air 04/14/17 07:00 98.7 90 16 146/87 (106) 94 Room Air 04/14/17 03:20 98.4 86 20 143/84 (103) 98 04/14/17 00:00 98.7 85 16 119/77 (91) 97 04/13/17 20:10 04/13/17 19:45 98.5 101 17 135/84 (101) 98 04/13/17 18:13 98 18 122/83 (96) 99 Room Air 04/13/17 16:44 80 18 98 Room Air 04/13/17 16:42 98.4 90 18 145/98 (114) 98 Room Air I/O 04/13/17 04/13/17 04/13/17 04/14/17 04/14/17 04/14/17 07:00 15:00 23:00 07:00 15:00 23:00 Intake Total 480 ml Output Total 600 ml Balance -120 ml Intake Oral 480 ml Output Urine Total 600 ml Result Diagram: 04/13/17 1746 04/13/17 1624 Objective Remarks GENERAL: NAD, A&Ox3 HEAD: Normocephalic. NECK: Supple, trachea midline. No lymphadenopathy. EYES: No scleral icterus. No injection or drainage. CARDIOVASCULAR: Regular rate and rhythm without murmurs, gallops, or rubs. RESPIRATORY: Breath sounds equal bilaterally. No accessory muscle use. GASTROINTESTINAL: Abdomen soft, non-tender, nondistended. MUSCULOSKELETAL: No cyanosis, or edema. Bilateral lower extremities are bandaged. Right lower extremity has external fixation at the proximal aspect of the foot SKIN: Warm and dry. NEURO: No focal neurological deficitis. A/P Problem List: (1) Calcaneal fracture ICD Code: S92.009A - Unspecified fracture of unspecified calcaneus, initial encounter for closed fracture Status: Acute Assessment and Plan Assessment and Plan 32-year-old male admitted secondary to bilateral calcaneus fractures Bilateral calcaneus fractures Podiatry following Postop repair of right heel Continue maintenance for external fixation of right heel Plan for left she'll fracture surgery in 1 day Continue as needed pain treatments Nothing by mouth at midnight Nicotine dependence Patient declines NicoDerm DVT prophylaxis SCDs contraindicated Consider anticoagulants postop tomorrow Problem Qualifiers (1) Calcaneal fracture: Qualified Codes: S92.009A - Unspecified fracture of unspecified calcaneus, initial encounter for closed fracture Saman Scott MD Apr 14, 2017 11:24
[2017-04-14] MEDS ORDERED: ONDANSETRON HCL 4 MG/2 ML VIAL IV PUSH ONE (12:00)
[2017-04-14] MEDS ORDERED: LIDOCAINE HCL 1% PF 5 ML SYRINGE OTHER ONE (12:00)
[2017-04-14] MEDS ORDERED: PROPOFOL 200 MG/20 ML AMP IV ONE (12:00)
[2017-04-14] MEDS ORDERED: ceFAZolin INJ 1,000 MG VIAL IV ONE (12:00)
[2017-04-14 12:44] LABS: AUTOMATED NEUTROPHIL # 11.5 TH/MM3 (1.8-7.7); BASOPHIL % 0.1 % (0.0-2.0); EOSINOPHIL # 0.1 TH/MM3 (0-0.4); EOSINOPHIL % 0.8 % (0.0-4.0); HEMATOCRIT 38.2 % (39.0-51.0); HEMO FLAGS DIFF FINAL; LYMPH % 18.2 % (9.0-44.0); LYMPHOCYTE # 2.8 TH/MM3 (1.0-4.8); MEAN CELL VOLUME 92.6 FL (80.0-100.0); MEAN CORPUSCULAR HEMOGLOBIN 31.5 PG (27.0-34.0); MONO % 5.6 % (0.0-8.0); NEUT % 75.3 % (16.0-70.0); PLATELET COUNT 162 TH/MM3 (150-450); RED BLOOD COUNT 4.12 MIL/MM3 (4.50-5.90); RED CELL DISTRIBUTION WIDTH 13.5 % (11.6-17.2); WHITE BLOOD COUNT 15.3 TH/MM3 (4.0-11.0)
[2017-04-14 13:25] LABS: ALKALINE PHOSPHATASE 87 U/L (45-117); ALT (GPT) 71 U/L (12-78); ANION GAP 3 MEQ/L (5-15); AST (GOT) 52 U/L (15-37); BICARBONATE 29.4 MEQ/L (21.0-32.0); BLOOD UREA NITROGEN 7 MG/DL (7-18); CHLORIDE 105 MEQ/L (98-107); GLOMERULAR FILTRATION RATE 116 ML/MIN (>89); SODIUM (NA) 137 MEQ/L (136-145); TOTAL BILIRUBIN ADULT 1.3 MG/DL (0.2-1.0)
[2017-04-14] MEDS: ACETAMINOPHEN 500 MG CPLT PO PRN (19:20)
[2017-04-15] MEDS: HYDROmorphone HCL PF 1 MG/ML VIAL IV PUSH PRN ×4 (01:40→18:50)
[2017-04-15 03:40] VITALS: BP 122/71; PULSE 105; RESP 18; TEMP 100.1; O2SAT 92
[2017-04-15] MEDS: oxyCODONE/ACETAMINOPHEN 10 MG/325 MG TAB PO PRN ×3 (04:10→19:59)
[2017-04-15] MEDS: ACETAMINOPHEN 500 MG CPLT PO PRN (04:43)
[2017-04-15] MEDS ORDERED: BUPIVACAINE HCL PF 0.25% 30 ML VIAL ONE ×2 (05:44→13:31)
[2017-04-15] MEDS ORDERED: GENTAMICIN SULFATE 80 MG/2 ML VIAL ONE (05:44)
[2017-04-15] MEDS: SODIUM CHLOR 0.9% 1000 ML INJ 1,000 ML IV SCH ×2 (06:16→17:52)
[2017-04-15 08:00] VITALS: BP 118/70; PULSE 84; RESP 18; TEMP 98.4; O2SAT 100
[2017-04-15 08:04] LABS: AUTOMATED NEUTROPHIL # 8.4 TH/MM3 (1.8-7.7); BASOPHIL % 0.2 % (0.0-2.0); EOSINOPHIL # 0.3 TH/MM3 (0-0.4); EOSINOPHIL % 2.3 % (0.0-4.0); HEMATOCRIT 37.8 % (39.0-51.0); HEMO FLAGS DIFF FINAL; LYMPH % 16.2 % (9.0-44.0); LYMPHOCYTE # 1.9 TH/MM3 (1.0-4.8); MEAN CELL VOLUME 93.3 FL (80.0-100.0); MEAN CORPUSCULAR HEMOGLOBIN 31.8 PG (27.0-34.0); MEAN CORPUSCULAR HGB CONC 34.1 % (32.0-36.0); MONO % 8.1 % (0.0-8.0); NEUT % 73.2 % (16.0-70.0); PLATELET COUNT 144 TH/MM3 (150-450); RED BLOOD COUNT 4.05 MIL/MM3 (4.50-5.90); RED CELL DISTRIBUTION WIDTH 13.4 % (11.6-17.2); WHITE BLOOD COUNT 11.5 TH/MM3 (4.0-11.0)
[2017-04-15 08:37] LABS: ANION GAP 5 MEQ/L (5-15); AST (GOT) 37 U/L (15-37); BICARBONATE 27.7 MEQ/L (21.0-32.0); BLOOD UREA NITROGEN 5 MG/DL (7-18); CHLORIDE 102 MEQ/L (98-107); GLOMERULAR FILTRATION RATE 114 ML/MIN (>89); POTASSIUM 4.2 MEQ/L (3.5-5.1); SODIUM (NA) 135 MEQ/L (136-145)
[2017-04-15 08:40] LABS: ALKALINE PHOSPHATASE 93 U/L (45-117); ALT (GPT) 58 U/L (12-78); TOTAL BILIRUBIN ADULT 0.8 MG/DL (0.2-1.0)
[2017-04-15] MEDS: SODIUM CHLORIDE 0.9% FLUSH 10 ML FLUSH IV FLUSH SCH ×2 (09:00→21:00)
[2017-04-15] MEDS ORDERED: ACETAMINOPHEN 1000 MG/100 ML 100 ML IV ONE (09:44)
[2017-04-15] MEDS ORDERED: ceFAZolin 2 GM PREMIX 50 ML ONE (10:03)
[2017-04-15] MEDS ORDERED: HYDROmorphone HCL PF 2 MG/ML VIAL ONE (12:17)
--- NOTE | 2017-04-15 12:59 | RADRPT ---
EXAM DATE/TIME: 04/15/2017 11:45 [facility] COMPARISON: CT FOOT LEFT W/O CONTRAST, April 13, 2017, 17:44. FOOT LEFT COMPLETE ([id number]), April 13, 2017 , 16:02. INDICATIONS : ORIF of the left calcaneus. MEDICAL HISTORY : None. SURGICAL HISTORY : None. ENCOUNTER: Subsequent ACUITY: 2 days PAIN SCORE: Non-responsive. LOCATION: Left calcaneus. FINDINGS: 2 views in the operating room show evidence of open reduction and screw fixation of the comminuted an d intra-articular calcaneal fracture. A total of 5 screws are present, 3 posteriorly and two in the s ubtalar region of the body. Alignment is near-anatomic. No evidence of an acute complication. CONCLUSION: Screw fixation of comminuted, intra-articular fracture of the calcaneus in near-anatomic alignment. Luke Kirkland MD on April 15, 2017 at 12:55 Board Certified Radiologist. This report was verified electronically.
--- NOTE | 2017-04-15 13:54 | HHI.PR ---
Immediate Post Op Note Procedure Date: Apr 15, 2017 Pre Op Diagnosis: 1. calcaneus fracture Left foot 2. calcaneus fracture Right foot 3. Wounds x 3 dorsal and medial R foot, s/p fasciotomy Post Op Diagnosis: same Surgeon: Lauren Young DPEl [employer] Business Segment Leader(s): Jayesh Palm DPEl Procedure: 1. ORIF Left calcaneus fracture 2. ORIF Right calcaneus fracture 3. Compartment syndrome R foot with Delayed primary closure of wounds dorsal and medial R foot 4. Removal of wound vac R foot Findings: Consistent with diagnosis L foot sinus tarsi incision made and subtalar joint visualized. STJ reduced, and two 4.0mm Screws utilized to maintain reduction. Pointed reduction clamp to reduce posterior fracture line and 4.0mm cannulated screw utilized from posterior dorsal calcaneus to plantar inferior to maintiain reduction. 2x 6.5mm screws from plantar to dorsal and plantar inferior to under subtalar joint placed. C-arm utilized to confirm reduction and adequate fixation. Dressing with xeroform, 4x4, abd, cast padding and posterior splint applied. R foot examined under fluoro and reduction maintained with current external fixation to posterior superior fragment and left intact. Sinus tarsi incision extended to visualize fracture more adequately. Subtalar joint reduced and 2 x 4.0mm screws utilized to maintain reduction. Attempted to utilize 6.5mm screws plantar proximal to dorsal distal and severe comminution negated usage of this. Bone void filler into fracture under fluoro and exfix left intact. Dressing with xeroform, 4x4, abd, cast padding and posterior splint applied. Additional Information: NWB bilateral LE Ok to begin anticoagulant tomorrow Recommend long-term placement for PT due to NWB until able to go home Pain control Will need removal of external fixator in approx 6 weeks in OR Complications: None Specimen(s) removed: none Estimated blood loss: 30mL Anesthesia: General, Local (0.25% marcaine plain bilateral ankle block) Drains: None Tourniquet time (min at mmHg) R thigh at 250 mmHg x 85 min L thigh @ 250 mmHg x 53 min Patient to: PACU Patient Condition: Good Implant/Devices: SEE IMPLANT LOG (if applicable) Date/Time of Procedure: SEE SURGICAL CARE RECORD Lauren Young DPM Apr 15, 2017 13:54
[2017-04-15] MEDS ORDERED: DO NOT ADM ANY ANTICOAGULANT DRUGS PRN (14:15)
--- NOTE | 2017-04-15 14:20 | RADRPT ---
EXAM DATE/TIME: 04/15/2017 11:45 [facility] COMPARISON: No previous studies available for comparison. INDICATIONS : Surgical repair of right calcaneus. MEDICAL HISTORY : None. SURGICAL HISTORY : None. ENCOUNTER: Initial ACUITY: 1 day PAIN SCORE: Non-responsive. LOCATION: Right calcaneus. FINDINGS: 2 intraoperative spot images of the heel. External fixator hardware in place. Apparent cement identif ied centrally in the calcaneus. Calcaneal fracture noted. CONCLUSION: Intraoperative spot images of the heel demonstrating external fixator hardware and calcaneus fracture . Rafa Álvarez MD on April 15, 2017 at 14:18 Board Certified Radiologist. This report was verified electronically.
--- NOTE | 2017-04-15 14:40 | RADRPT ---
EXAM DATE/TIME: 04/15/2017 14:09 [facility] COMPARISON: FOOT LEFT COMPLETE ([id number]), April 13, 2017, 16:02. INDICATIONS : Post op, ORIF left calcaneus. MEDICAL HISTORY : None. SURGICAL HISTORY : None. ENCOUNTER: Initial ACUITY: 1 day PAIN SCORE: Non-responsive. LOCATION: Left heel FINDINGS: 3 views left foot. Splint obscures fine bone detail on the AP views. Comminuted calcaneus fracture is again seen. 5 metallic screws are now in place. Alignment is near-anatomic. CONCLUSION: Comminuted calcaneus fracture status post ORIF. Rafa Álvarez MD on April 15, 2017 at 14:37 Board Certified Radiologist. This report was verified electronically.
--- NOTE | 2017-04-15 14:42 | RADRPT ---
EXAM DATE/TIME: 04/15/2017 14:12 [facility] COMPARISON: FOOT RIGHT COMPLETE ([id number]), April 14, 2017, 7:11. INDICATIONS : Post op, ORIF right foot. MEDICAL HISTORY : None. SURGICAL HISTORY : None. ENCOUNTER: Initial ACUITY: 1 day PAIN SCORE: Non-responsive. LOCATION: Right foot FINDINGS: 3 views right foot. Splint obscures fine bone detail on the AP views. External fixator pins are noted in the first metatarsal, talar neck, and at the posterior margin of the calcaneus. 2 horizontal scre ws are seen within the calcaneus. Comminuted calcaneus fracture noted. Hyperdense material perhaps re presenting cement seen in the central calcaneus. CONCLUSION: Calcaneus fracture again seen. External fixator pins are seen along with 2 calcaneal internal fixatio n screws. Rafa Álvarez MD on April 15, 2017 at 14:39 Board Certified Radiologist. This report was verified electronically.
[2017-04-15 16:00] VITALS: BP 131/71; PULSE 92; RESP 18; TEMP 98.8; O2SAT 95
--- NOTE | 2017-04-15 16:38 | HHI.PR ---
Subjective Remarks Fevers occurred overnight. This is likely either related to the anesthesia or postop surgical response. White blood cell count has actually trended downward. Patient's having his left ankle repair today. Objective Vital Signs Date Time Temp Pulse Resp B/P (MAP) Pulse Ox O2 Delivery O2 Flow Rate FiO2 04/15/17 14:50 98.3 95 16 115/72 (86) 94 Nasal Cannula 2 04/15/17 14:30 93 15 120/64 (82) 94 Nasal Cannula 2 04/15/17 14:15 87 16 113/58 (76) 94 Nasal Cannula 2 04/15/17 14:00 92 16 126/61 (82) 93 Nasal Cannula 2 04/15/17 13:53 98.3 94 16 127/75 (92) 95 Nasal Cannula 3 04/15/17 08:00 98.4 84 18 118/70 (86) 100 04/15/17 03:40 100.1 105 18 122/71 (88) 92 04/14/17 23:00 98.9 89 18 131/73 (92) 95 04/14/17 20:07 99.5 74 18 124/58 (80) 95 04/14/17 17:56 101.5 I/O 04/14/17 04/14/17 04/14/17 04/15/17 04/15/17 04/15/17 07:00 15:00 23:00 07:00 15:00 23:00 Intake Total 480 ml 480 ml 200 ml 1400 ml Output Total 100 ml 50 ml Balance 480 ml 480 ml 100 ml 1350 ml Intake Oral 480 ml 480 ml 0 ml IV Total 200 ml 1400 ml Drainage Total 100 ml Estimated Blood Loss 50 ml # Voids 2 4 3 2 # Bowel Movements 0 0 0 0 Result Diagram: 04/15/1771504/15/1716 Objective Remarks GENERAL: NAD, A&Ox3 HEAD: Normocephalic. NECK: Supple, trachea midline. No lymphadenopathy. EYES: No scleral icterus. No injection or drainage. CARDIOVASCULAR: Regular rate and rhythm without murmurs, gallops, or rubs. RESPIRATORY: Breath sounds equal bilaterally. No accessory muscle use. GASTROINTESTINAL: Abdomen soft, non-tender, nondistended. MUSCULOSKELETAL: No cyanosis, or edema. Bilateral lower extremities are bandaged. Right lower extremity has external fixation at the proximal aspect of the foot SKIN: Warm and dry. NEURO: No focal neurological deficitis. A/P Problem List: (1) Calcaneal fracture ICD Code: S92.009A - Unspecified fracture of unspecified calcaneus, initial encounter for closed fracture Status: Acute Assessment and Plan Assessment and Plan 32-year-old male admitted secondary to bilateral calcaneus fractures. Now postop surgical repair of both calcaneal fractures. Right calcaneus has external fixation. Bilateral calcaneus fractures Podiatry following Postop repair of right heel 04/14/17 Continue maintenance for external fixation of right heel Left calcaneal surgery performed 04/15/17 Continue as needed pain treatments Nothing by mouth at midnight Nicotine dependence Patient declines NicoDerm DVT prophylaxis SCDs contraindicated Consider anticoagulants postop tomorrow Problem Qualifiers (1) Calcaneal fracture: Qualified Codes: S92.009A - Unspecified fracture of unspecified calcaneus, initial encounter for closed fracture Saman Scott MD Apr 15, 2017 16:38
[2017-04-15 18:55] VITALS: O2SAT 95
[2017-04-15 19:24] VITALS: BP 130/63; PULSE 109; RESP 18; TEMP 99.1; O2SAT 98
[2017-04-15] MEDS ORDERED: HYDROmorphone HCL PF 1 MG/ML VIAL IV PUSH ONE (21:45)
[2017-04-15 23:39] VITALS: BP 136/73; PULSE 100; RESP 18; TEMP 99.8; O2SAT 96
[2017-04-16] MEDS: oxyCODONE/ACETAMINOPHEN 10 MG/325 MG TAB PO PRN ×5 (01:16→17:14)
[2017-04-16 03:54] VITALS: BP 118/60; PULSE 90; RESP 17; TEMP 97.9; O2SAT 98
[2017-04-16] MEDS: HYDROmorphone HCL PF 1 MG/ML VIAL IV PUSH PRN ×4 (03:57→20:07)
[2017-04-16 06:01] LABS: AUTOMATED NEUTROPHIL # 9.1 TH/MM3 (1.8-7.7); EOSINOPHIL # 0.1 TH/MM3 (0-0.4); EOSINOPHIL % 0.8 % (0.0-4.0); HEMO FLAGS DIFF FINAL; LYMPH % 20.6 % (9.0-44.0); LYMPHOCYTE # 2.7 TH/MM3 (1.0-4.8); MEAN CELL VOLUME 92.6 FL (80.0-100.0); MEAN CORPUSCULAR HEMOGLOBIN 32.1 PG (27.0-34.0); MEAN CORPUSCULAR HGB CONC 34.6 % (32.0-36.0); MONO % 9.7 % (0.0-8.0); NEUT % 68.9 % (16.0-70.0); PLATELET COUNT 163 TH/MM3 (150-450); RED BLOOD COUNT 3.67 MIL/MM3 (4.50-5.90); WHITE BLOOD COUNT 13.3 TH/MM3 (4.0-11.0)
[2017-04-16] MEDS: SODIUM CHLOR 0.9% 1000 ML INJ 1,000 ML IV SCH ×2 (06:07→11:52)
[2017-04-16 06:29] LABS: ANION GAP 8 MEQ/L (5-15); AST (GOT) 24 U/L (15-37); BICARBONATE 28.2 MEQ/L (21.0-32.0); BLOOD UREA NITROGEN 7 MG/DL (7-18); CHLORIDE 102 MEQ/L (98-107); GLOMERULAR FILTRATION RATE 133 ML/MIN (>89); POTASSIUM 3.8 MEQ/L (3.5-5.1); SODIUM (NA) 138 MEQ/L (136-145)
[2017-04-16 06:33] LABS: ALKALINE PHOSPHATASE 91 U/L (45-117); ALT (GPT) 44 U/L (12-78); TOTAL BILIRUBIN ADULT 0.4 MG/DL (0.2-1.0)
--- NOTE | 2017-04-16 07:48 | PD.POD ---
Subjective Pain score: 7 Remarks Doing well however pain is only controlled at his point by Dilaudid, last BM before 1st surgery 04-13, however he admits no eating much Past Med/Surg/Social History Social History Smoking Status: Never Smoker Objective Vital Signs Vital Signs Date Time Temp Pulse Resp B/P (MAP) Pulse Ox O2 Delivery O2 Flow Rate FiO2 04/16/17 03:54 97.9 90 17 118/60 (79) 98 04/15/17 23:39 99.8 100 18 136/73 (94) 96 04/15/17 19:24 99.1 109 18 130/63 (85) 98 04/15/17 18:55 95 Nasal Cannula 2.00 04/15/17 16:00 98.8 92 18 131/71 (91) 95 04/15/17 14:50 98.3 95 16 115/72 (86) 94 Nasal Cannula 2 04/15/17 14:30 93 15 120/64 (82) 94 Nasal Cannula 2 04/15/17 14:15 87 16 113/58 (76) 94 Nasal Cannula 2 04/15/17 14:00 92 16 126/61 (82) 93 Nasal Cannula 2 04/15/17 13:53 98.3 94 16 127/75 (92) 95 Nasal Cannula 3 04/15/17 08:00 98.4 84 18 118/70 (86) 100 Coded Allergies: No Known Allergies (Unverified Allergy, Unknown, 04/13/17) Medications and IVs Administered Medications Medications (Trade) Dose Ordered Sig/Latonia Route PRN Reason Start Time Stop Time Status Last Admin Dose Admin Sodium Chloride 1,000 ml @ 83 mls/hr Q12H3M IV 04/13/17 18:07 04/14/17 18:59 Sodium Chloride (NS Flush) 2 ml BID IV FLUSH 04/13/17 21:00 04/15/17 09:00 Oxycodone/ Acetaminophen (Percocet 10-325 Mg) 1 tab Q4H PRN PO PAIN SCALE 6 TO 10 04/14/17 08:45 04/16/17 05:31 Hydromorphone HCl (Dilaudid Pf Inj) 1 mg Q4H PRN IV PUSH Breakthrough Pain 04/14/17 08:45 04/16/17 03:57 Acetaminophen (Tylenol) 500 mg Q6HR PRN PO fever over 100.0 F 04/14/17 19:00 04/15/17 04:43 Objective Remarks CBC & BMP Diagram 04/16/17 05:24 Total Protein 6.3 L, Albumin 2.6 L, Calcium Level 8.0 L, Alkaline Phosphatase 91 , Aspartate Amino Transf (AST/SGOT) 24, Alanine Aminotransferase (ALT/SGPT) 44, Total Bilirubin 0.4 Exam-Podiatry Constitutional General appearance: uncomfortable Nutritional status: normal Orientation: alert and oriented x3 Musculoskeletal Exam Details BL splints ( Foot and Ankle) intact with no strikethrough, sensation and ROm intact to digits no calf or thigh tenderness Assessment & Plan A/P BL calcaneal fracture, right foot compartment syndrome. Surgeon: Lauren Young DPM SP Procedure 04-16: 1. ORIF Left calcaneus fracture 2. ORIF Right calcaneus fracture 3. Compartment syndrome R foot with Delayed primary closure of wounds dorsal and medial R foot 4. Removal of wound vac R foot Goals- pain management, will change bandage tomorrow, wound check. Added Lovenox , Keflex. Will try PT after bandage change tomorrow. Pt will need assistance with transfer from bed to wheel chair for next 6-8 weeks. He feels he has plenty of help at home. Jayesh Palm DPM Apr 16, 2017 07:47
[2017-04-16 08:00] VITALS: BP 108/56; PULSE 89; RESP 18; TEMP 98.7; O2SAT 93
[2017-04-16] MEDS ORDERED: Post-op Orders (for Pharmacy) MISC XX ONE (08:00)
[2017-04-16] MEDS ORDERED: BISACODYL 10 MG SUPP RECTAL PRN (08:00)
[2017-04-16] MEDS ORDERED: BISACODYL EC 5 MG TABEC PO PRN (08:15)
[2017-04-16] MEDS: MAGNESIUM HYDROXIDE SUSP 30 ML CUP PO PRN (09:10)
[2017-04-16] MEDS: SODIUM CHLORIDE 0.9% FLUSH 10 ML FLUSH IV FLUSH SCH ×2 (09:11→21:07)
[2017-04-16 09:38] VITALS: O2SAT 93
[2017-04-16] MEDS: LACTULOSE SYRUP 20 GM/30 ML CUP PO PRN (11:07)
[2017-04-16 11:08] VITALS: BP 123/65; PULSE 102; RESP 19; TEMP 97.4; O2SAT 95
[2017-04-16] MEDS: ENOXAPARIN SODIUM 40 MG/0.4 ML SYRINGE SQ SCH (12:53)
[2017-04-16] MEDS: CEPHALEXIN MONOHYDRATE 500 MG CAP PO SCH ×2 (12:53→21:07)
--- NOTE | 2017-04-16 14:38 | HHI.FF ---
Face to Face Verification Diagnosis: (1) Calcaneal fracture (2) Compartment syndrome Physical Therapy Order: Evaluate and Treat, Improve ambulation, Strength and gait training Occupational Therapy Order: Evaluate and Treat, Improve ADL, Gross motor coordination, Fine motor coordination Home Health Nursing Order: Medical education Signs/symptoms of disease process Medication education-adverse effect Wound care and dressing changes Nursing assessment with vital signs I have seen patient Ezequiel Elder on 04/16/17. My clinical findings support the need for the requested home health care services because: Deconditioned w/ increased weakness Limited ability to care for self High risk of falls I certify that my clinical findings support that this patient is homebound because: Post-op weakness Unsteady gait/balance Unsafe to leave home unassisted Jonas Vega DO Apr 16, 2017 14:38
[2017-04-16] MEDS ORDERED: WHEEMIS3 (14:39)
--- NOTE | 2017-04-16 14:51 | HHI.PR ---
Subjective Remarks The patient said that his pain control is better. He would like to go home soon. No acute complaints. Discussed with case management. Objective Vitals Vital Signs Date Time Temp Pulse Resp B/P (MAP) Pulse Ox O2 Delivery O2 Flow Rate FiO2 04/16/17 11:08 97.4 102 19 123/65 (84) 95 04/16/17 09:38 93 Nasal Cannula 2.00 04/16/17 08:00 98.7 89 18 108/56 (73) 93 04/16/17 03:54 97.9 90 17 118/60 (79) 98 04/15/17 23:39 99.8 100 18 136/73 (94) 96 04/15/17 19:24 99.1 109 18 130/63 (85) 98 04/15/17 18:55 95 Nasal Cannula 2.00 04/15/17 16:00 98.8 92 18 131/71 (91) 95 04/15/17 14:50 98.3 95 16 115/72 (86) 94 Nasal Cannula 2 I/O 04/15/17 04/15/17 04/15/17 04/16/17 04/16/17 04/16/17 07:00 15:00 23:00 07:00 15:00 23:00 Intake Total 200 ml 1400 ml 480 ml 480 ml Output Total 100 ml 50 ml Balance 100 ml 1350 ml 480 ml 480 ml Intake Oral 0 ml 480 ml 480 ml IV Total 200 ml 1400 ml Drainage Total 100 ml Estimated Blood Loss 50 ml # Voids 3 2 4 3 # Bowel Movements 0 0 0 0 Result Diagram: 04/16/17 0524 04/16/17 0524 Imaging Last Impressions Foot X-Ray 04/15/17 0000 Signed Impressions: Service Date/Time: Saturday, April 15, 2017 11:45 - CONCLUSION: Intraoperative spot images of the heel demonstrating external fixator hardware and calcaneus fracture. Rafa Álvarez MD Ankle X-Ray 04/14/17 0000 Signed Impressions: Service Date/Time: Friday, April 14, 2017 07:17 - CONCLUSION: Comminuted calcaneus fracture. External fixator pins in place. Rafa Álvarez MD Tibia/Fibula X-Ray 04/13/17 0000 Signed Impressions: Service Date/Time: Thursday, April 13, 2017 15:38 - CONCLUSION: Negative trauma study. The known calcaneal fracture is again visualized. Jonas Junior MD Lumbar Spine X-Ray 04/13/17 0000 Signed Impressions: Service Date/Time: Thursday, April 13, 2017 15:49 - CONCLUSION: Negative trauma study. Jonas Junior MD Lower Extremity CT 04/13/17 0000 Signed Impressions: Service Date/Time: Thursday, April 13, 2017 17:44 - CONCLUSION: Comminuted calcaneal fracture. Luke Romero MD Objective Remarks GENERAL: NAD, A&Ox3 HEAD: Normocephalic. NECK: Supple, trachea midline. No lymphadenopathy. EYES: No scleral icterus. No injection or drainage. CARDIOVASCULAR: Regular rate and rhythm without murmurs, gallops, or rubs. RESPIRATORY: Breath sounds equal bilaterally. No accessory muscle use. GASTROINTESTINAL: Abdomen soft, non-tender, nondistended. MUSCULOSKELETAL: No cyanosis, or edema. Bilateral lower extremities are bandaged. Right lower extremity has external fixation at the proximal aspect of the foot SKIN: Warm and dry. NEURO: No focal neurological deficitis. Procedures ORIF Medications and IVs Current Medications Medications (Trade) Dose Ordered Sig/Latonia Route Start Time Stop Time Status Last Admin Sodium Chloride 1,000 ml @ 83 mls/hr Q12H3M IV 04/13/17 18:07 04/14/17 18:59 (NS Flush) 2 ml UNSCH PRN IV FLUSH 04/13/17 18:15 (NS Flush) 2 ml BID IV FLUSH 04/13/17 21:00 04/16/17 09:11 (Zofran Inj) 4 mg Q6H PRN IVP 04/13/17 18:15 (Narcan Inj) 0.4 mg UNSCH PRN IV PUSH 04/13/17 18:15 (Milk Of Magnesia Liq) 30 ml Q12H PRN PO 04/13/17 18:15 04/16/17 09:10 Lactated Ringer's 1,000 ml @ 30 mls/hr Q24H PRN IV 04/13/17 19:45 04/16/17 19:44 Sodium Chloride 500 ml @ 30 mls/hr [id number] PRN IV 04/13/17 19:45 04/16/17 19:44 (Lopressor) 25 mg SWITCHBOARD MANAGER PRN PO 04/13/17 19:45 04/16/17 19:44 (Betadine 5% Antisepsis Kit) 1 applic SWITCHBOARD MANAGER PRN EACH NARE 04/13/17 19:45 04/16/17 19:44 (Chlorhexidine 2% Cloth) 3 pack SWITCHBOARD MANAGER PRN TOPICAL 04/13/17 19:45 04/16/17 19:44 (Percocet 5-325 Mg) 1 tab Q4H PRN PO 04/14/17 08:45 (Dilaudid Pf Inj) 1 mg Q4H PRN IV PUSH 04/14/17 08:45 04/16/17 13:48 (Tylenol) 500 mg Q6HR PRN PO 04/14/17 19:00 04/15/17 04:43 (Lovenox Inj) 40 mg Q24H SQ 04/16/17 13:00 04/16/17 12:53 (Dulcolax Supp) 10 mg DAILY PRN RECTAL 04/16/17 08:00 (Lactulose Liq) 30 ml DAILY PRN PO 04/16/17 08:00 04/16/17 11:07 (Keflex) 500 mg Q8HR PO 04/16/17 14:00 04/18/17 13:59 04/16/17 12:53 (Dulcolax Ec) 10 mg DAILY PRN PO 04/16/17 08:15 04/16/17 11:07 (Percocet 10-325 Mg) 2 tab Q4H PRN PO 04/16/17 12:45 04/16/17 12:54 A/P Problem List: (1) Calcaneal fracture ICD Code: S92.009A - Unspecified fracture of unspecified calcaneus, initial encounter for closed fracture Status: Acute Assessment and Plan 32-year-old male admitted secondary to bilateral calcaneus fractures. Now postop surgical repair of both calcaneal fractures. Right calcaneus has external fixation. Bilateral calcaneus fractures Podiatry following. Postop repair of right heel 04/14/17 Continue maintenance for external fixation of right heel Left calcaneal surgery performed 04/15/17 Continue as needed pain treatments - Will need wheelchair and C. - pain control with a bowel regimen. Nicotine dependence Patient declines NicoDerm Leukocytosis Unsure of etiology. Possibly reactive. - check a CXR and UA. DVT prophylaxis: Lovenox Discharge Planning D/c when cleared by podiatry Problem Qualifiers (1) Calcaneal fracture: Qualified Codes: S92.009A - Unspecified fracture of unspecified calcaneus, initial encounter for closed fracture Jonas Vega DO Apr 16, 2017 14:51
[2017-04-16] MEDS ORDERED: BEDSIDE COMMODE1 MI1 (14:54)
--- NOTE | 2017-04-16 15:16 | RADRPT ---
EXAM DATE/TIME: 04/16/2017 14:50 [facility] COMPARISON: No previous studies available for comparison. INDICATIONS : No chest complaints. Evaluate for pneumonia. MEDICAL HISTORY : None. SURGICAL HISTORY : ORIF left calcaneus ENCOUNTER: Subsequent ACUITY: 1 day PAIN SCORE: 0/10 LOCATION: Bilateral chest FINDINGS: A single view of the chest demonstrates the lungs to be symmetrically aerated without evidence of mas s, infiltrate or effusion. The cardiomediastinal contours are unremarkable. Osseous structures are intact. CONCLUSION: 1. No acute cardiopulmonary disease. Glynn Menjivar MD on April 16, 2017 at 15:14 Board Certified Radiologist. This report was verified electronically.
[2017-04-16 17:17] VITALS: BP 118/74; PULSE 97; RESP 18; TEMP 95.4; O2SAT 97
[2017-04-16 19:00] VITALS: BP 133/69; PULSE 108; RESP 17; TEMP 98.6; O2SAT 97
[2017-04-16] MEDS: SODIUM CHLORIDE 0.9% FLUSH 10 ML FLUSH IV FLUSH PRN (20:07)
[2017-04-17] VITALS (8 sets, daily range): BP systolic 107–122; BP diastolic 61–77; PULSE 87–103; RESP 15–16; TEMP 98–99.1; O2SAT 92–96
[2017-04-17] MEDS: SODIUM CHLORIDE 0.9% FLUSH 10 ML FLUSH IV FLUSH PRN ×2 (00:39→05:04)
[2017-04-17] MEDS: HYDROmorphone HCL PF 1 MG/ML VIAL IV PUSH PRN ×2 (00:39→05:04)
[2017-04-17] MEDS: oxyCODONE/ACETAMINOPHEN 10 MG/325 MG TAB PO PRN ×6 (02:24→23:15)
[2017-04-17] MEDS: CEPHALEXIN MONOHYDRATE 500 MG CAP PO SCH ×3 (05:04→22:12)
[2017-04-17 05:32] LABS: BLOOD, URINE NEG (NEG); COMMENT (UR) CULT NOT INDICATED; CULTURE IF INDICATED CULT NOT INDICATED; GLUCOSE,URINE NEG (NEG); KETONE, URINE NEG (NEG); NITRITE,URINE NEG (NEG); PH, URINE 7.5 (5.0-8.5); URINE COLOR LIGHT-YELLOW (YELLW/STRAW)
[2017-04-17] MEDS: SODIUM CHLOR 0.9% 1000 ML INJ 1,000 ML IV SCH ×2 (06:28→18:31)
[2017-04-17] MEDS: SODIUM CHLORIDE 0.9% FLUSH 10 ML FLUSH IV FLUSH SCH ×2 (09:00→22:12)
[2017-04-17] MEDS: ENOXAPARIN SODIUM 40 MG/0.4 ML SYRINGE SQ SCH (11:48)
--- NOTE | 2017-04-17 13:57 | HHI.PR ---
Subjective Remarks The patient was resting comfortably in bed. He says his pain control is a lot better today. He is looking forward to going home soon. No acute complaints. Discussed with nursing. Objective Vitals Vital Signs Date Time Temp Pulse Resp B/P (MAP) Pulse Ox O2 Delivery O2 Flow Rate FiO2 04/17/17 12:51 96 21 04/17/17 08:00 98.8 87 16 115/61 (79) 95 04/17/17 04:00 99.1 92 15 116/69 (85) 95 04/17/17 00:00 99.0 103 16 107/64 (78) 95 04/16/17 19:00 98.6 108 17 133/69 (90) 97 04/16/17 17:17 95.4 97 18 118/74 (89) 97 I/O 04/16/17 04/16/17 04/16/17 04/17/17 04/17/17 04/17/17 07:00 15:00 23:00 07:00 15:00 23:00 Intake Total 480 ml 480 ml 680 ml Output Total 375 ml 1400 ml Balance 480 ml 105 ml -720 ml Intake Oral 480 ml 480 ml 680 ml Output Urine Total 375 ml 1400 ml # Voids 3 3 # Bowel Movements 0 0 0 Result Diagram: 04/16/17 0524 04/16/17 0524 Imaging Last Impressions Chest X-Ray 04/16/17 0000 Signed Impressions: Service Date/Time: Sunday, April 16, 2017 14:50 - CONCLUSION: 1. No acute cardiopulmonary disease. Glynn Menjivar MD Foot X-Ray 04/15/17 0000 Signed Impressions: Service Date/Time: Saturday, April 15, 2017 11:45 - CONCLUSION: Intraoperative spot images of the heel demonstrating external fixator hardware and calcaneus fracture. Rafa Álvarez MD Ankle X-Ray 04/14/17 0000 Signed Impressions: Service Date/Time: Friday, April 14, 2017 07:17 - CONCLUSION: Comminuted calcaneus fracture. External fixator pins in place. Rafa Álvarze MD Tibia/Fibula X-Ray 04/13/17 0000 Signed Impressions: Service Date/Time: Thursday, April 13, 2017 15:38 - CONCLUSION: Negative trauma study. The known calcaneal fracture is again visualized. Jonas Junior MD Lumbar Spine X-Ray 04/13/17 0000 Signed Impressions: Service Date/Time: Thursday, April 13, 2017 15:49 - CONCLUSION: Negative trauma study. Jonas Junior MD Lower Extremity CT 04/13/17 0000 Signed Impressions: Service Date/Time: Thursday, April 13, 2017 17:44 - CONCLUSION: Comminuted calcaneal fracture. Luke Romero MD Objective Remarks GENERAL: NAD, A&Ox3 HEAD: Normocephalic. NECK: Supple, trachea midline. No lymphadenopathy. EYES: No scleral icterus. No injection or drainage. CARDIOVASCULAR: Regular rate and rhythm without murmurs, gallops, or rubs. RESPIRATORY: Breath sounds equal bilaterally. No accessory muscle use. GASTROINTESTINAL: Abdomen soft, non-tender, nondistended. MUSCULOSKELETAL: No cyanosis, or edema. Bilateral lower extremities are bandaged. Right lower extremity has external fixation at the proximal aspect of the foot SKIN: Warm and dry. NEURO: No focal neurological deficitis. Procedures ORIF Medications and IVs Current Medications Medications (Trade) Dose Ordered Sig/[place] Route Start Time Stop Time Status Last Admin Sodium Chloride 1,000 ml @ 83 mls/hr Q12H3M IV 04/13/17 18:07 04/14/17 18:59 (NS Flush) 2 ml UNSCH PRN IV FLUSH 04/13/17 18:15 04/17/17 05:04 (NS Flush) 2 ml BID IV FLUSH 04/13/17 21:00 04/16/17 21:07 (Zofran Inj) 4 mg Q6H PRN IVP 04/13/17 18:15 (Narcan Inj) 0.4 mg UNSCH PRN IV PUSH 04/13/17 18:15 (Milk Of Magnesia Liq) 30 ml Q12H PRN PO 04/13/17 18:15 04/16/17 09:10 (Percocet 5-325 Mg) 1 tab Q4H PRN PO 04/14/17 08:45 04/16/17 21:14 (Dilaudid Pf Inj) 1 mg Q4H PRN IV PUSH 04/14/17 08:45 04/17/17 05:04 (Tylenol) 500 mg Q6HR PRN PO 04/14/17 19:00 04/15/17 04:43 (Lovenox Inj) 40 mg Q24H SQ 04/16/17 13:00 04/17/17 11:48 (Dulcolax Supp) 10 mg DAILY PRN RECTAL 04/16/17 08:00 (Lactulose Liq) 30 ml DAILY PRN PO 04/16/17 08:00 04/16/17 11:07 (Keflex) 500 mg Q8HR PO 04/16/17 14:00 04/18/17 13:59 04/17/17 13:07 (Dulcolax Ec) 10 mg DAILY PRN PO 04/16/17 08:15 04/16/17 11:07 (Percocet 10-325 Mg) 2 tab Q4H PRN PO 04/16/17 12:45 04/17/17 11:46 A/P Problem List: (1) Calcaneal fracture ICD Code: S92.009A - Unspecified fracture of unspecified calcaneus, initial encounter for closed fracture Status: Acute Assessment and Plan 32-year-old male admitted secondary to bilateral calcaneus fractures. Now postop surgical repair of both calcaneal fractures. Right calcaneus has external fixation. Bilateral calcaneus fractures Podiatry following. Postop repair of right heel 04/14/17. Left calcaneal surgery performed 04/15/17. - Will need wheelchair and C. - pain control with a bowel regimen. - further care per podiatry. Nicotine dependence Patient declines NicoDerm. - cessation instruction. Leukocytosis Unsure of etiology. Possibly reactive. CXR and UA unremarkable. Afebrile. - repeat CBC. DVT prophylaxis: Lovenox Discharge Planning D/c when cleared by podiatry, anticipate in AM Problem Qualifiers (1) Calcaneal fracture: Qualified Codes: S92.009A - Unspecified fracture of unspecified calcaneus, initial encounter for closed fracture Jonas Vega DO Apr 17, 2017 13:57
[2017-04-17] MEDS: DOCUSATE SODIUM 50 MG/SENNA 8.6 MG TAB PO SCH ×2 (14:00→22:12)
[2017-04-17] MEDS ORDERED: OXYC1TAB36 PO (15:19)
[2017-04-17] MEDS ORDERED: HYDROmorphone HCL PF 1 MG/ML VIAL IV PUSH PRN (15:30)
--- NOTE | 2017-04-17 16:22 | PD.POD ---
Subjective Pain score: 7 Remarks Doing well however ready to go home Past Med/Surg/Social History Social History Smoking Status: Never Smoker Objective Vital Signs Vital Signs Date Time Temp Pulse Resp B/P (MAP) Pulse Ox O2 Delivery O2 Flow Rate FiO2 04/17/17 15:47 98.0 93 16 115/77 (90) 96 04/17/17 12:51 96 21 04/17/17 12:00 98.7 93 16 122/64 (83) 92 04/17/17 08:00 98.8 87 16 115/61 (79) 95 04/17/17 04:00 99.1 92 15 116/69 (85) 95 04/17/17 00:00 99.0 103 16 107/64 (78) 95 04/16/17 19:00 98.6 108 17 133/69 (90) 97 04/16/17 17:17 95.4 97 18 118/74 (89) 97 Coded Allergies: No Known Allergies (Unverified Allergy, Unknown, 04/13/17) Objective Remarks CBC & BMP Diagram 04/16/17 05:24 Total Protein 6.3 L, Albumin 2.6 L, Calcium Level 8.0 L, Alkaline Phosphatase 91 , Aspartate Amino Transf (AST/SGOT) 24, Alanine Aminotransferase (ALT/SGPT) 44, Total Bilirubin 0.4 Exam-Podiatry Remarks Exam-Podiatry Constitutional General appearance: uncomfortable Nutritional status: normal Orientation: alert and oriented x3 Musculoskeletal Exam Details BL splints ( Foot and Ankle) intact with no strikethrough, sensation and ROm intact to digits no calf or thigh tenderness Upon remove bandages all incisions well coapted with moderate edema no signs of infection or necrosis Assessment & Plan A/P BL calcaneal fracture, right foot compartment syndrome. Surgeon: Lauren Young DPM SP Procedure 04-16: 1. ORIF Left calcaneus fracture 2. ORIF Right calcaneus fracture 3. Compartment syndrome R foot with Delayed primary closure of wounds dorsal and medial R foot 4. Removal of wound vac R foot Bandage and splint changed, Needs Keflex, Percocet, and Lovenox for DC, ok to FU in clinic [address] Young. Jayesh Palm DPM Apr 17, 2017 16:22
[2017-04-17] MEDS ORDERED: ENOX40P SQ (16:28)
[2017-04-17] MEDS ORDERED: CEPH500C PO (16:28)
[2017-04-17 18:55] LABS: AUTOMATED NEUTROPHIL # 7.2 TH/MM3 (1.8-7.7); BASOPHIL % 0.1 % (0.0-2.0); EOSINOPHIL # 0.7 TH/MM3 (0-0.4); EOSINOPHIL % 5.9 % (0.0-4.0); HEMATOCRIT 34.9 % (39.0-51.0); HEMO FLAGS DIFF FINAL; LYMPH % 23.7 % (9.0-44.0); LYMPHOCYTE # 2.7 TH/MM3 (1.0-4.8); MEAN CELL VOLUME 93.6 FL (80.0-100.0); MEAN CORPUSCULAR HEMOGLOBIN 31.9 PG (27.0-34.0); MEAN CORPUSCULAR HGB CONC 34.1 % (32.0-36.0); MONO % 8.1 % (0.0-8.0); NEUT % 62.2 % (16.0-70.0); PLATELET COUNT 210 TH/MM3 (150-450); RED BLOOD COUNT 3.73 MIL/MM3 (4.50-5.90); RED CELL DISTRIBUTION WIDTH 13.2 % (11.6-17.2); WHITE BLOOD COUNT 11.5 TH/MM3 (4.0-11.0)
[2017-04-17] MEDS: LACTULOSE SYRUP 20 GM/30 ML CUP PO PRN (22:14)
[2017-04-17] MEDS: MAGNESIUM HYDROXIDE SUSP 30 ML CUP PO PRN (22:14)
[2017-04-18 00:33] VITALS: BP 125/76; PULSE 89; RESP 20; TEMP 99.8; O2SAT 97
[2017-04-18] MEDS: oxyCODONE/ACETAMINOPHEN 10 MG/325 MG TAB PO PRN ×3 (03:26→13:16)
[2017-04-18 05:34] LABS: HEMATOCRIT 33.5 % (39.0-51.0); MEAN CELL VOLUME 92.7 FL (80.0-100.0); MEAN CORPUSCULAR HEMOGLOBIN 32.4 PG (27.0-34.0); PLATELET COUNT 209 TH/MM3 (150-450); RED BLOOD COUNT 3.62 MIL/MM3 (4.50-5.90); RED CELL DISTRIBUTION WIDTH 13.3 % (11.6-17.2); REVIEW FLAG FINAL; WHITE BLOOD COUNT 8.6 TH/MM3 (4.0-11.0)
[2017-04-18] MEDS: SODIUM CHLOR 0.9% 1000 ML INJ 1,000 ML IV SCH (06:00)
[2017-04-18] MEDS: CEPHALEXIN MONOHYDRATE 500 MG CAP PO SCH (06:00)
[2017-04-18 07:43] VITALS: BP 121/69; PULSE 97; RESP 18; TEMP 97.3; O2SAT 96
[2017-04-18] MEDS: DOCUSATE SODIUM 50 MG/SENNA 8.6 MG TAB PO SCH (09:00)
[2017-04-18] MEDS: SODIUM CHLORIDE 0.9% FLUSH 10 ML FLUSH IV FLUSH SCH (09:00)
[2017-04-18 11:51] VITALS: BP 118/62; PULSE 85; RESP 18; TEMP 98.3; O2SAT 95
[2017-04-18 12:00] VITALS: O2SAT 95
--- NOTE | 2017-04-18 12:50 | HHI.DCPOC ---
Discharge Care Plan Diagnosis: (1) Calcaneal fracture (2) Compartment syndrome Goals to Promote Your Health * To prevent worsening of your condition and complications * To maintain your health at the optimal level Directions to Meet Your Goals Take your medications as prescribed Follow your dietary instruction Follow activity as directed Keep your appointments as scheduled Take your immunizations and boosters as scheduled If your symptoms worsen call your PCP, if no PCP go to Urgent Care Center or Emergency Room Smoking is Dangerous to Your Health. Avoid second hand smoke Call the 24-hour hour crisis hotline for domestic abuse at Jonas Vega DO Apr 18, 2017 12:50
--- NOTE | 2017-04-18 12:56 | HHI.DS ---
Discharge Summary Admission Date Apr 13, 2017 at 17:57 Discharge Date: Apr 18, 2017 Admitting Diagnosis calcaneal fractures (1) Calcaneal fracture ICD Code: S92.009A - Unspecified fracture of unspecified calcaneus, initial encounter for closed fracture Diagnosis: Principal Status: Acute (2) Compartment syndrome ICD Code: T79.A0XA - Compartment syndrome, unspecified, initial encounter Diagnosis: Principal Procedures ORIF Brief History - From Admission Written by Bello Munroe, acting as scribe for Dr. Scott on 04/13/17 at 18:10. 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 He does not report a significant past medical history, denies any other injuries or trauma. When seen his is at bedside and he appears comfortable in no acute distress. He is complaining of bilateral foot pain radiating it 03/06, states pain medication that he received did help but for only short period of time. Does not report any fever, chills, numbness, or tingling. CBC/BMP: 04/18/17 0515 04/16/17 0524 Significant Findings Laboratory Tests Test 04/16/17 05:24 04/17/17 03:12 04/17/17 18:12 04/18/17 05:15 White Blood Count 13.3 TH/MM3 (4.0-11.0) 11.5 TH/MM3 (4.0-11.0) Red Blood Count 3.67 MIL/MM3 (4.50-5.90) 3.73 MIL/MM3 (4.50-5.90) 3.62 MIL/MM3 (4.50-5.90) Hemoglobin 11.8 GM/DL (13.0-17.0) 11.9 GM/DL (13.0-17.0) 11.7 GM/DL (13.0-17.0) Hematocrit 34.0 % (39.0-51.0) 34.9 % (39.0-51.0) 33.5 % (39.0-51.0) Monocytes (%) (Auto) 9.7 % (0.0-8.0) 8.1 % (0.0-8.0) Neutrophils # (Auto) 9.1 TH/MM3 (1.8-7.7) Monocytes # (Auto) 1.3 TH/MM3 (0-0.9) Total Protein 6.3 GM/DL (6.4-8.2) Albumin 2.6 GM/DL (3.4-5.0) Calcium Level 8.0 MG/DL (8.5-10.1) Urine Turbidity HAZY (CLEAR) Eosinophils (%) (Auto) 5.9 % (0.0-4.0) Eosinophils # (Auto) 0.7 TH/MM3 (0-0.4) Imaging Last Impressions Chest X-Ray 04/16/17 0000 Signed Impressions: Service Date/Time: Sunday, April 16, 2017 14:50 - CONCLUSION: 1. No acute cardiopulmonary disease. Glynn Menjivar MD Foot X-Ray 04/15/17 0000 Signed Impressions: Service Date/Time: Saturday, April 15, 2017 11:45 - CONCLUSION: Intraoperative spot images of the heel demonstrating external fixator hardware and calcaneus fracture. Rafa Álvarez MD Ankle X-Ray 04/14/17 0000 Signed Impressions: Service Date/Time: Friday, April 14, 2017 07:17 - CONCLUSION: Comminuted calcaneus fracture. External fixator pins in place. Rafa Álvarez MD Tibia/Fibula X-Ray 04/13/17 0000 Signed Impressions: Service Date/Time: Thursday, April 13, 2017 15:38 - CONCLUSION: Negative trauma study. The known calcaneal fracture is again visualized. Jonas Junior MD Lumbar Spine X-Ray 04/13/17 0000 Signed Impressions: Service Date/Time: Thursday, April 13, 2017 15:49 - CONCLUSION: Negative trauma study. Jonas Junior MD Lower Extremity CT 04/13/17 0000 Signed Impressions: Service Date/Time: Thursday, April 13, 2017 17:44 - CONCLUSION: Comminuted calcaneal fracture. Luke Romero MD PE at Discharge GENERAL: NAD, A&Ox3 HEAD: Normocephalic. NECK: Supple, trachea midline. No lymphadenopathy. EYES: No scleral icterus. No injection or drainage. CARDIOVASCULAR: Regular rate and rhythm without murmurs, gallops, or rubs. RESPIRATORY: Breath sounds equal bilaterally. No accessory muscle use. GASTROINTESTINAL: Abdomen soft, non-tender, nondistended. MUSCULOSKELETAL: No cyanosis, or edema. Bilateral lower extremities are bandaged. Right lower extremity has external fixation at the proximal aspect of the foot SKIN: Warm and dry. NEURO: No focal neurological deficitis. Pt update on day of discharge The patient was resting in bed comfortably. He was looking forward to going home. No acute complaints. Discussed with nursing. Hospital Course Bilateral calcaneus fractures S/p a fall from a roof. Podiatry was consulted. The pt is postop repair of right heel 04/14/17 and left calcaneal surgery was performed 04/15/17. He received pain control with a bowel regimen. The wound vac was discontinued. He will complete a course of antibiotics. He will continue Lovenox. He received Lovenox teaching. He will follow up with podiatry in one week. He will have home health care arranged, as well as a wheelchair and wheelchair ramp. Nicotine dependence Patient declined NicoDerm. He received smoking cessation instruction. Leukocytosis CXR and UA unremarkable. The pt has been afebrile. Leukocytosis resolved. Pt Condition on Discharge: Stable Discharge Disposition: Disch w/ Home Health Serv Discharge Time: > 30 minutes Discharge Instructions DIET: Follow Instructions for: As Tolerated, No Restrictions Activities you can perform: See Additionl Instruction Other Activity Instructions: Weight bearing per podiatry recommendations Follow up Referrals: PCP Follow-up - 1 Week Podiatry @ [facility] with Lauren Young DPM [facility]/ with [employer] [facility] - [phone] New Medications: Bedside Commode (Bedside Commode) 1 Mis Mis EA .ROUTE DIRECTED, #1 Wheelchair Elevated Leg (Wheelchair Elevated Leg) 1 Mis Mis EA .ROUTE DIRECTED, #1 0 Refills Cephalexin (Cephalexin) 500 Mg Cap 500 MG PO Q8HR for Inflammation for 7 Days, #21 CAP Enoxaparin Inj (Lovenox Inj) 40 Mg/0.4 Ml Syr 40 MG SQ Q24H for Blood Clot Prevention for 14 Days, INJECTION Oxycodone HCl/Acetaminophen (Oxycodone-Acetaminophen 10-325) 10 Mg-325 Mg Tablet 1 TAB PO Q6HR PRN for PAIN SCALE 1 TO 10, #20 TAB Jonas Vega DO Apr 18, 2017 12:56
[2017-04-18] MEDS: ENOXAPARIN SODIUM 40 MG/0.4 ML SYRINGE SQ SCH (13:16)
== END 2017-04-18 15:27 | disposition home health service (06) | DRG 501 ==
LOC: NEPC 15:12 → NEDA 17:57 → N06B 19:34
PROVIDERS: ADMIT Hospitalist; ATTEND Hospitalist
PROC: 0QSL35Z Reposition Right Tarsal with External Fixation Device, Percutaneous Approach (ICD-10-PCS; 2017-04-14)
PROC: 0KNV0ZZ Release Right Foot Muscle, Open Approach (ICD-10-PCS; 2017-04-14)
PROC: 0KNV0ZZ Release Right Foot Muscle, Open Approach (ICD-10-PCS; 2017-04-14)
PROC: 0KNV0ZZ Release Right Foot Muscle, Open Approach (ICD-10-PCS; 2017-04-14)
PROC: 0KNV0ZZ Release Right Foot Muscle, Open Approach (ICD-10-PCS; principal; 2017-04-14 04:50)
PROC: 0QSL04Z Reposition Right Tarsal with Internal Fixation Device, Open Approach (ICD-10-PCS; 2017-04-15)
PROC: 0QSM04Z Reposition Left Tarsal with Internal Fixation Device, Open Approach (ICD-10-PCS; 2017-04-15)
DX: S92.001A Unspecified fracture of right calcaneus, initial encounter for closed fracture (principal); T79.A21A Traumatic compartment syndrome of right lower extremity, initial encounter; S92.002A Unspecified fracture of left calcaneus, initial encounter for closed fracture; W13.2XXA Fall from, out of or through roof, initial encounter; F17.200 Nicotine dependence, unspecified, uncomplicated; R50.9 Fever, unspecified; D72.829 Elevated white blood cell count, unspecified
CPT/HCPCS: 29515; 71010; 72110; 73590; 73610; 73620; 73630; 73650; 73700; 76000; 80053; 80307; 81001; 85025; 85027; 85610; 85730; 94150; 96374; 96375; J1170; C1713; J0131; J0690; J1580; J1650; J2270; J2405; J3010; J7030